=== PATIENT | male | born 1940 | race Caucasian/White ===

== ENCOUNTER 2016-08-02 07:45 | Inpatient (IN) ==
[2016-08-02] MEDS ORDERED: 0.9 % Sodium Chloride 1,000 ML IVC SCH (08:00)
[2016-08-02] MEDS ORDERED: Verapamil 5 MG/2 ML VIAL ONE (10:15)
[2016-08-02] MEDS ORDERED: 0.9 % Sodium Chloride 1,000 ML ONE (10:16)
[2016-08-02] MEDS ORDERED: Nitroglycerin 1,000 MCG/10 ML VIAL IV ONE (10:16)
[2016-08-02] MEDS ORDERED: *HR* Heparin 10,000 UNIT/10 ML VIAL ONE (10:16)
[2016-08-02] MEDS ORDERED: Heparin 1,000 UNITS/500 mL NS 500 ML ONE (10:16)
--- NOTE | 2016-08-02 10:31 | History & Physical Report ---
Date of Encounter: 08/02/16 Time of Encounter: 10:30 24 Hour HP Update - Instructions Instructions: If the History and Physical is less than 30 days old and was completed prior to A.M. admission and or procedure and has NOT been updated on calendar day of procedure please complete this update prior to performing procedure. - Update Patient reports changes in Medical Condition: No Changes in assessment/condition: No Changes in Medication: No Preop tests/diagnostics Reviewed: Yes Surgery Remains Indicated: Yes Consent for Planned Operative Procedure(s) Verified: Yes
--- NOTE | 2016-08-02 10:32 | Pre-Sedation Evaluation ---
Pre-sedation evaluation - Pre-sedation checklist Date of procedure: 08/02/16 Procedure: [facility] Recent Vitals: Last Vital Signs Temp 97.8 F 08/02/16 08:21 Pulse 61 08/02/16 08:21 Resp 16 08/02/16 08:21 BP 138/87 08/02/16 08:21 Pulse Ox 98 08/02/16 08:21 H&P (including ROS) documented in medical record: Yes Previous reaction to sedatives/anesthetics: No Dietary Status: NPO after Midnight Dentition: No loose teeth or bridges ASA Classification *see protocol: CLASS II-Mild systemic disease Plan of Care: Pt appropriate candidate for procedure/moderate/conscious sedation , Risks/benefits of procedure/sedation discussed w/ patient/family
[2016-08-02] MEDS ORDERED: *HR* FentaNYL (PF) 100 MCG/2 ML VIAL ONE (10:33)
[2016-08-02] MEDS ORDERED: *HR* Midazolam HCl 2 MG/2 ML VIAL ONE (10:33)
[2016-08-02] MEDS ORDERED: Aspirin 81 MG TAB.CHEW ONE (10:39)
--- NOTE | 2016-08-02 11:19 | Invasive Diagnostic Lab Proc ---
Name: Todd Villanueva Hugh Date of Study: 08/02/2016 Date: 1940 Ht: 67.0in Medical Record#: [id number] Age: 75 Wt: 175.00lb Gender: Male BSA: 1.91 Order #: [id number] BMI: 27.41 Physicians Procedure Physician: Evert Quigley MD, [facility] Referring MD: Referring MD: Staff Name Position Time In [facility], [place] RT (R) Pre-Op Nurse Vivian Bowers RN Pre-Op Nurse Sophia Portillo RT (R) Monitor 10:44 AM Henrietta Alfred RN Hat Model 10:44 AM [place] Melchor RT (R) Scrub 10:44 AM Indications Indication Unstable Angina Procedures Performed Procedure L HRT ARTERY/VENTRICLE ANGIO Pre-Procedure Checklist Informed consent is complete signed and on chart. H\\T\\P is on chart. ID band is on and ID verified with patient. Patient NPO for procedure The procedure was described for the patient and questions were answered. Blood Pressure: 138/87 ECG is on chart. Rhythm: NSR Plan of Care Patient will tolerate the procedure without complications. Adequate level of comfort will be maintained. Hemodynamics will remain stable Patient will recover from procedure without complications. Respiratory function will be maintained. Cardiac rhythm will remain stable. Patient temperature will be maintained. Patient and/or family have verbalized understanding of the procedure. Patient Education Chief Complaint/Reason for Test: Cardiac Cath Developmental Category: Geriatric (65+ years) Developmentally Appropriate for Age: Yes Learning Barriers: None Education Needs: Procedure Education Method: Verbal Information Taught: Cardiac Cath Educational Evaluation: Able to repeat information Intravenous Access Time IV Size Location DC'd Fluid/Drip Rate Units RN 08:40 AM Started with 20g 1 1/4" Lt Antecubital 0.9NaCl 50 ml/hr [facility], [place] RT (R) Allergies No Known Allergies Vital Signs Time BP (mmHg) HR (bpm) O2 Sat. RR (bpm) LOC 08:42 AM 138 / 87 61 98 % 16 5 = Fully awake and oriented or at pre-proc level 10:44 AM 163 / 82 52 100 % 16 10:50 AM 172 / 79 55 99 % 11 10:54 AM 146 / 60 113 100 % 4 10:59 AM 134 / 59 68 97 % 12 11:04 AM 144 / 61 % Procedural Medications Time Medication Dose Units Method Given By 10:45 AM Oxygen 2 L/min nasal cannula Henrietta Alfred RN 10:45 AM Versed 2 mg Intravenous Henrietta Alfred RN 10:46 AM Fentanyl 50 mcg Intravenous Henrietta Alfred RN 10:46 AM Aspirin (325mg) 325 mg Orally Henrietta Alfred RN 10:54 AM Lidocaine 2% 0.5 ml Subcutaneous Evert Quigley MD, FACC 10:54 AM Heparin 4000 units Nitroglycerin 200 mcg Verapamil 2.5 mg Intraarterial Evert Quigley MD, [facility] ASA Classification: CLASS II- Mild systemic disease (i.e. well-controlled diabetes, hypertension, asthma, cigarette smoking) Nano Score Preprocedure Postprocedure Activity 2- Moves 4 extremities sustained head lift Activity 2- Moves 4 extremities sustained head lift Circulation 2- SBP +/= 20 points of pre-anesthetic level Circulation 2- SBP +/= 20 points of pre-anesthetic level Consciousness 2- Awake and alert oriented x 3 Consciousness 2- Awake and alert oriented x 3 O2 Saturation 2- Able to maintain O2 satruation of 92% on room air O2 Saturation 2- Able to maintain O2 satruation of 92% on room air Respiratory 2- Able to deep breathe and cough well Respiratory 2- Able to deep breathe and cough well Total Score 10 Total Score 10 Contrast Agent: Isovue Diagnostic Contrast: 51 ml Total Contrast: 51 ml Fluoro Dose: 148 mGy Procedure Log Time Note Enter By 08:44 AM Risk for fall? Yes, Medications (change in amt./frequency,newly prescribed,potential combinations) [email or web address] 08:44 AM Evidence of mental, physical, or emotional abuse? No [facility] 08:44 AM Does patient have suicidal ideations? No [facility] 09:42 AM Time: 10:42 Aspirin (325mg) 325 mg Orally Given by Henrietta Alfred RN 09:45 AM Sign in performed according to hospital policy. 10:40 AM Pt arrived to optical laboratory technician 2 at 10:44 10:40 AM Sophia Portillo RT (R) Position: Monitor Time in: 10:40 ones 10:40 AM Henrietta Alfred RN Position: Hat Model Time in: 10:40 10:40 AM [place] Melchor RT (R) Position: Scrub Time in: 10:40 10:41 AM Procedure start 10:41 10:41 AM Case Delayed Miscellaneous patient in bathroom for a long period of time. 10:41 AM Hair removed from procedure site in holding area using clippers. Right wrist prepped with Chloraprep by Sophia Portillo (R), safety strap applied then patient was draped. Skin intact. 10:41 AM Hair removed from procedure site in holding area using clippers. Right groin prepped with Chloraprep by Armando safety strap applied then patient was draped. Skin intact. 10:41 AM Physician arrived 10:41 10:41 AM Patient charges- Angio tray pack, Navilyst 3mm J, Pulse Oximetry and ACIST tubing and transducer 10:41 AM IV Supplies used: J loop Angio Cath. 10:41 AM ASA Class CLASS II- Mild systemic disease (i.e. well-controlled diabetes, hypertension, asthma, cigarette smoking) 10:41 AM Meet and greet completed 10:42 AM Time: 10:42 Versed 2 mg Intravenous Given by Henrietta Alfred RN [email or web address] 10:42 AM Time: 10:42 Fentanyl 50 mcg Intravenous Given by Henrietta Alfred RN [email or web address] 10:42 AM Time: 10:42 Aspirin (325mg) 324 mg Orally Given by Henrietta Alfred RN [email or web address] 10:42 AM Time: 10:42 Oxygen on at 2 L/min per nasal cannula by Henrietta Alfred RN [email or web address] 10:43 AM Recorded ECG: HR=54 Condition=Condition 1 10:44 AM CathStat 10:44 AM Vitals capture started with the following parameters, Patient=Adult, Interval=5 min, Initial Axufgmbp=214 mmHg, Deflation Rate=5 mmHg, Cuff placed on Left Arm 10:44 AM HR=52 bpm, FLNQ=375/82 mmhg, MeJ8=277.0 %, Resp=16 B/min 10:50 AM HR=55 bpm, RPMC=011/79 mmhg, SpO2=99.0 %, Resp=11 B/min, Comment=SB 10:54 AM Time out performed according to hospital policy [email or web address] 10:54 AM Time: 10:54 0.5 ml Lidocaine 2% to right radial Subcutaneous Given by Evert Quigley MD, [email or web address] 10:54 AM Access obtained by percutaneous puncture. 6Fr 10cm Terumo Glidesheath sheath placed in right Radial artery. [id number] [email or web address] 10:54 AM Time: 10:54 Patient given 4,000 units Heparin, 200 mcg Nitroglycerin, and 2.5 mg Verapamil Intraarterial by Evert Quigley MD, [email or web address] 10:54 AM ZV=692 bpm, LHWB=491/60 mmhg, XlA7=712.0 %, Resp=4 B/min, Comment=SB 10:54 AM 0.035 260cm Navilyst 3mmJ wire [id number] [email or web address] 10:55 AM 5Fr TIG catheter inserted over the wire [email or web address] 10:55 AM Pressure channel 1 zero failed. 10:55 AM Pressure channel 1 zero failed. 10:55 AM Pressure channel 1 zero failed. 10:55 AM Pressure channel 1 zero failed. 10:55 AM Pressure channel 1 zero failed. 10:55 AM Pressure channel 1 zeroed. 10:56 AM Recorded Pressure: LV, HR=66, Condition=Condition 1 (Left Ventricle) LV 96/3/11 10:56 AM Catheter selectively placed in left ventricle [email or web address] 10:56 AM Bolus angiogram of left Ventricle complete: 10 ml/sec for a total of 30 mls [email or web address] 10:56 AM Recorded Pressure: LV, Ao, HR=70, Condition=Condition 1 (Left Ventricle) LV 134/5/42, (Aorta) Ao ?/?/? 10:56 AM LCA angiography performed in multiple views. [email or web address] 10:56 AM Recorded Pressure: Ao, HR=69, Condition=Condition 1 (Aorta) Ao 107/72/88 10:58 AM RCA angiography performed in multiple views. [email or web address] 10:58 AM Recorded Pressure: Ao, HR=70, Condition=Condition 1 (Aorta) Ao 110/73/90 10:58 AM Lesion found in Proximal RCA. Pre Stenosis: 70 Pre LOIDA Flow: 2: Partial Flow/Perfusion (> 1 but < 3) [email or web address] 10:58 AM Lesion found in Mid RCA. Pre Stenosis: 95 Pre LOIDA Flow: 2: Partial Flow/Perfusion (> 1 but < 3) [email or web address] 10:58 AM Lesion found in Distal RCA. Pre Stenosis: 60 Pre LOIDA Flow: 2: Partial Flow/Perfusion (> 1 but < 3) [email or web address] 10:59 AM Catheter removed [email or web address] 10:59 AM HR=68 bpm, IYJW=767/59 mmhg, SpO2=97.0 %, Resp=12 B/min, Comment=SB 11:03 AM Procedure completed at 11:03 [email or web address] 11:03 AM Sign out completed: Radiation Dose 148.23 mGy Fluoro Time: 1.2 Isovue 370 - 200ml contrast 51 ml given by Evert Quigley MD, [facility]. Complications: NoneCardiac Rehab Consult needed: YesConfirmed administered medications: Yes [email or web address] 11:03 AM Isovue 370 - 200ml,1 Bottle(s) used. [email or web address] 11:03 AM Arterial sheath pulled, Vasc Band closure device used and was Successful S/N. [email or web address] 11:03 AM 12 ml air in Vasc Band. [email or web address] 11:03 AM Post ECG Sinus Bradycardia [email or web address] 11:04 AM Post Blood Pressure 134/59 [email or web address] 11:04 AM Information taught Cardiac Cath and Vasc Band [email or web address] 11:04 AM Education needs Plan of Care, Procedure, and Disease Process [email or web address] 11:04 AM Learning barriers :None [email or web address] 11:04 AM Education Methods Verbal [email or web address] 11:04 AM Education evaluation Able to repeat information [email or web address] 11:04 AM TGPL=915/61 mmhg, Comment=SB 11:05 AM Site status No bleeding/hematoma - Rt Wrist as reported by [place] Melchor RT (R) at 11:05 [email or web address] 11:05 AM Delay to floor No [email or web address] 11:05 AM Family placed in consult room. [email or web address] 11:05 AM Complications: None [email or web address] 11:11 AM Report given to Allison SNYDER Pt taken to 2NE Room #25. 11:11 [email or web address] 11:11 AM Patient out of room: 11:11 [email or web address] 11:11 AM Complications: None [email or web address] 11:12 AM Fluoro Time: 1.2 [email or web address] 11:12 AM Isovue 370 - 200ml contrast 51 ml given by Evert Quigley MD, [facility]. [email or web address] 11:12 AM Radiation Dose 148.23 mGy [email or web address] Complications Complication None None None Hemodynamics Pressures Site Systolic/A Wave Diastolic/V Wave Mean LV 96 3 11 LV 134 5 42 AO AO 107 72 88 AO 110 73 90 Post Procedure Information Blood Pressure: 134/59 mmHg Rhythm: Sinus Bradycardia Post procedural instructions were given Surgery consult for CABG Site Checks Time Location Status Staff Sheath In? Note 11:05 AM Rt Wrist No bleeding/hematoma [place] Melchor RT (R) Pulses Time Site Pre-Procedure Post-Procedure Note 08/02/2016 8:41:00 AM Rt Radial Normal plethysmography's Test 2+ 08/02/2016 8:41:00 AM Bilateral DP \\T\\ PT 2+ 2+ 08/02/2016 8:41:00 AM Bilateral radial 2+ 2+ Updated by Sophia Portillo, RT(R) on 08/02/2016 11:13:18 AM electronically signed on 08/02/2016 11:13:43 AM with status of Final
--- NOTE | 2016-08-02 12:24 | Cardiothoracic Consult Note ---
Date of Encounter: 08/02/16 Time of Encounter: 12:21 Assessment and Plan (1) Coronary artery disease Current Visit: Yes Status: Acute The assessment and plan as outlined above was discussed with the patient and/or family members who expressed understanding and agreement. All questions were answered. The patient is a candidate for coronary artery bypass grafting. Risks include , infection, stroke, bleeding, cardiac tamponade, myocardial infarction, renal or respiratory failure, acute or chronic graft closure, phrenic nerve injury and sternal dehiscence. The procedure, its risks benefits and alternatives were explained and he does wish to proceed. He was admitted to the hospital because of 95% LAD and circumflex lesions and we will schedule him for tomorrow. At this point he has no further questions. Qualifiers: Coronary Disease-Associated Artery/Lesion type: blackfeet artery [place] vs. transplanted heart: blackfeet heart Associated angina: with stable angina Qualified Code(s): I25.118 - Atherosclerotic heart disease of blackfeet coronary artery with other forms of angina pectoris - History of Present Illness History of present illness: Mr. Villanueva is a 75 year old male History of present illness. Patient is a 75-year-old gentleman who has been having angina with exertion. No history of myocardial infarction. Cardiac catheterization revealed a 95% LAD lesion and a 95% right coronary artery lesion. These are both graftable vessels. The first obtuse marginal branch of the circumflex was okay. He distal circumflex was diseased, but may be too small for grafting. Past medical history is notable for hyperlipidemia and anxiety. Family history is positive for coronary artery disease. Social history. The patient lives by himself in [place]. 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 Does not smoke and does not drink. Review of systems is negative for stroke or TIA. Negative for saphenous vein varicosities or strippings. Past Med Surg Social Fam HX - Past Medical History Medical history: hyperlipidemia Psychiatric history: anxiety - Social History Smoking Status: Never smoker Smokeless Tobacco Status: No Alcohol use: none Drug use: none - Family History Father Adopted: No Living Status: Age at : 62 Cause of : cirrohsis Medications and Allergies Amitriptyline [Elavil] 50 mg PO DAILY 08/02/16 [History] ClonazePAM [Klonopin] 0.5 mg PO BID 08/02/16 [History] Flunisolide 50 mcg NS BID 08/02/16 [History] One-A-Day Men's 50 Plus Tablet 1 mg PO DAILY 08/02/16 [History] Oxybutynin [Ditropan] 5 mg PO BID 08/02/16 [History] Oxymetazoline HCl [Nasal [place]] 1 spray NS BID 08/02/16 [History] Primidone [Mysoline] 25 mg PO HS 08/02/16 [History] Simvastatin [Zocor] 10 mg PO HS 08/02/16 [History] Terazosin HCl 2 mg PO HS 08/02/16 [History] Allergies No Known Allergies Allergy (Verified 08/02/16 08:21) All Systems Review: A 10-system review of systems was performed and is negative for pertinent findings except as documented above in the HPI. Physical Examination Vital Signs, Last 4 Hours Temp Pulse Resp BP Pulse Ox 08/02/16 11:31 97.9 F 58 15 121/77 97 His pupils are equal, round and reactive to light and accommodation. No oral lesions. Neck is supple. Trachea in the midline. No thyromegaly or carotid bruits. Lungs are clear to percussion and auscultation. Heart is in a normal sinus rhythm. He does have a 2/6 systolic murmur along the left sternal border. Abdomen is benign. He is status post open cholecystectomy. No tenderness, rebound or guarding. No hepatosplenomegaly or masses. Extremities without edema. 2+ pulses. No saphenous vein varicosities or strippings. Cranial nerves, motor and sensory intact. He is awake, alert and oriented 3. Consult Discharge Plan - Plan Referrals: NO,PCP [Primary Care Provider] -
[2016-08-02] MEDS ORDERED: ceFAZolin 2,000 MG in D5% in Water 100 ML IVPB ONE (12:31)
--- NOTE | 2016-08-02 13:01 | Invasive Diagnostic Lab ---
Name: Todd Villanueva Date of Study: 08/02/2016 Date: 1940 Ht: 170.2 cm /67.0 in Medical Record#: [id number] Age: 75 Wt: 79.4 kg / 175.00 lb Account/Order#: [id number] Gender: Male BSA: 1.91 Order #: [id number] Fluoro Dose: 148 mGy BMI: 27.41 Procedure Physician: Evert Quigley MD, FACC Referring MD: Referring MD: Procedures Performed: LEFT HEART CATH Indications: Unstable Angina, Abnormal stress test Impressions: There is severe multivessel coronary artery disease. The left ventricle is normal and has normal contractility EF 60% Recommendations: Optimal medical therapy of patient's disease. Aggressive risk factor modification. Suggest patient have Urgent coronary artery bypass surgery. History/Risk Factors: anxiety heart problems nasal problems Dyslipidemia Family History of CAD Procedure Access obtained in the right Radial artery by percutaneous puncture Complications: None, None, None Contrast: Isovue 51ml Hemodynamics: Pressures Site Systolic/ A Wave Diastolic/ V Wave End Diastolic/ Mean HR LV 96 3 11 66 LV 134 5 42 70 AO 0 AO 107 72 88 69 AO 110 73 90 70 LV Ventriculography Ejection Method: LV Gram Ejection Fraction: 60% Wall Motion: RUSSELL Anterobasal Normal Anterolateral Normal Apical: Normal Inferoapical Normal Inferobasal Normal Coronary Dominance: Right Lesion Findings/Interventions * Left Main Coronary Artery The LMCA is angiographically free of disease. * Left Anterior Descending There is a 95% stenosis in the Proximal LAD. There is a long 70-95% stenosis in the Mid LAD. * Circumflex There is a mid 50% stenosis in the Mid Circumflex. * Right Coronary Artery There is a 70% stenosis in the Proximal RCA. There is a 95% stenosis in the Mid RCA. Instent restenosis There is a 60% stenosis in the Distal RCA. Updated by RT Maggie(R) on 08/02/2016 11:12:32 AM Evert Quigley MD, FACC electronically signed on 08/02/2016 12:58:09 PM with status of Final
[2016-08-02 13:02] LABS: Basophils # 0.1 K/mcL (0.0-0.2); Basophils % 0.8 %; Eosinophils # 0.3 K/mcL (0.0-0.6); Eosinophils % 3.4 %; Hematocrit 43.4 % (37.5-50.1); Hemoglobin 13.7 g/dL (12.9-16.9); Immature Granulocytes % 0.3 % (0-4); Lymphocytes # 1.9 K/mcL (0.6-4.6); Lymphocytes % 25.1 %; Mean Corpuscular HGB Conc 31.6 g/dL (31.6-35.5); Mean Corpuscular Hemoglobin 25.8 pg (28.0-33.3); Mean Corpuscular Volume 81.7 fL (83.0-100.0); Mean Platelet Volume 10.2 fL (9.4-12.4); Monocytes # 0.7 K/mcL (0.0-1.3); Monocytes % 9.6 %; Neutrophils # 4.5 K/mcL (1.6-8.9); Platelet Count 160 K/mcL (140-400); Red Blood Count 5.31 M/mcL (4.19-5.50); Red Cell Distribution Width 15.1 % (11.5-14.5); Segmented Neutrophils % 60.8 %
[2016-08-02 13:08] LABS: INR 1.1; Prothrombin Time 11.7 Seconds (9.4-12.1)
[2016-08-02 13:11] LABS: Activated Partial Thrombo Time 49.4 Seconds (26.0-36.0)
[2016-08-02 13:24] LABS: BUN/Creatinine Ratio 8 (6-26); Blood Urea Nitrogen 9 mg/dL (8-26); Calcium 8.1 mg/dL (8.6-10.8); Carbon Dioxide 25 mEq/L (19-29); Chloride 106 mEq/L (98-109); Cholesterol 110 mg/dL (< 200); Glucose 93 mg/dL (70-99); HDL Cholesterol 37 mg/dL (40-59); LDL Cholesterol,Calculated 59 mg/dL (0-99); Osmolality,Calculated 284 (280-300); Potassium 4.2 mEq/L (3.5-4.5); Sodium 138 mEq/L (136-145); Triglycerides 69 mg/dL (< 150); eGFR For African Americans > 60 (> 60); eGFR For Non-African Americans > 60 (> 60)
[2016-08-02 13:31] LABS: Hemoglobin A1C 5.4 %
--- NOTE | 2016-08-02 13:41 | Anesthesia Evaluation PreOp ---
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 Any Significant HX Other Medical History: Other (anxiety) Anesthesia History: No Prior Anesthetic Complications Alcohol Use: none Drug use: none Medications and Allergies Amitriptyline [Elavil] 50 mg PO HS 08/02/16 [History] Aspirin [Lo-Dose Aspirin EC] 81 mg PO DAILY 08/02/16 [History] Atenolol [Tenormin] 37.5 mg PO DAILY 08/02/16 [History] ClonazePAM [Klonopin] 0.5 mg PO BID 08/02/16 [History] Fluticasone Propionate Nasal [Flonase] 50 mcg NS BID 08/02/16 [History] Nitroglycerin [Nitrostat] 0.4 mg SL AD PRN 08/02/16 [History] Joy-3/Dha/Epa/Fish Oil [Fish Oil 1,000 mg Softgel] 1,000 mg PO DAILY 08/02/16 [History] Oxybutynin [Ditropan] 5 mg PO BID 08/02/16 [History] Primidone [Mysoline] 25 mg PO BID 08/02/16 [History] Saw [place] Xtr/Zinc Picolin [Saw [place] Capsule] 1 cap PO DAILY 08/02/16 [ History] Simvastatin [Zocor] 10 mg PO HS 08/02/16 [History] Terazosin [Hytrin] 3 mg PO HS 08/02/16 [History] Allergies No Known Allergies Allergy (Verified 08/02/16 08:21) - Meds/Allergy Pre-op Review Medications Reviewed: Yes Allergies Reviewed: Yes Beta Blockers on Current Med List: Yes Anesthesia Results - Labs 08/02/16 12:44 08/02/16 12:44 - Imaging Additional studies: cath shows LAD disease with EF 60% Anesthesia Exam Selected Entries 08/03/16 01:00 Temperature 97.7 F Pulse Rate 68 Respiratory Rate 16 Blood Pressure 137/75 O2 Sat by Pulse Oximetry 97 Height: 1.7m Weight: 82kg NPO (# of Hours): 8 Pain Scale: 0 Pain Scale Used: Numeric (1 - 10) - HEENT Pupil (Motor): EOMI Mallampati: II Teeth: Normal Oral Opening: Greater than 3 - [employer] SUPERVISOR LOC: Oriented [employer]PER[employer] SUPERVISOR Motor: Normal RUE, Normal LUE, Normal RLE, Normal LLE, Normal Face [employer] SUPERVISOR Sensory: Normal: RUE, LUE, RLE, LLE, Face - Cardiac Rhythm: Regular Murmur: Systolic (2/6 BOB) - Pulmonary Breath Sounds: bilateral Clear Respiratory Effort: Symmetrical Anesthesia Assess/Plan ASA Score: 3 Modified Beto Scale for Level of Consciousness: Cooperative, oriented, and tranquil Anesthetic Plan: General Monitoring Plan: Standard Monitors, A-Line, PAC Recovery Plan: ICU (Discussed risks of GA, lines, potential need for MARGARET and blood products. Questions answered and agrees to proceed.)
[2016-08-02] MEDS: 0.9 % Sodium Chloride 1,000 ML IVC SCH (16:47)
--- NOTE | 2016-08-02 17:24 | ECHO - Doppler Report ---
Echocardiogram Name: Todd Villanueva Date of Study: 08/02/2016 Date: 1940 Ht: 67.0 in Medical Record#: [id number] Age: 75 Wt: 175.0 lb Gender: Male BSA: 1.91 Order #: [id number] Location: [facility] Room #: [id number] Reading Physician: Cathi Collins DO Knitting Supervisor: Myranda Fung RDCS Ordering Physician: Gerald Perez MD Primary Physician: None Indications: Murmur, PreOperative CABG Impressions: LVEF 55%. Normal left ventricular size and systolic function. There is evidence of mild diastolic dysfunction of the left ventricle. Dilated RV with normal function. Eccentric aortic regurgitation that is poorly visualized. Calcification of the aortic valve leaflets with moderate reduction in leaflet excursion. Suboptimal Doppler evaluation. Recommend repeat Limited study with focus on the aortic valve. Mild mitral regurgitation. No pulmonary hypertension. Left Ventricular Wall Motion: Rest Echo Findings All wall segments showed normal motion. Findings: ECG Findings * Normal sinus rhythm. Aortic Valve * Leaflet morphology is not well visualized. * Eccentric AR that is poorly visualized. * Calcification of the aortic valve leaflets with moderate reduction in leaflet excursion. Suboptimal Doppler evaluation. Mitral Valve * Normal mitral valve structure. * No mitral stenosis. * Mild mitral regurgitation. Tricuspid Valve * Tricuspid valve not well visualized. * No tricuspid regurgitation. Pulmonic Valve * Pulmonic valve is not well visualized. * No pulmonic stenosis. * No pulmonic regurgitation. Pulmonary Artery * Pulmonary artery not well visualized. Left Ventricle * LVEF 55%. * Normal LV chamber size, wall thickness and function. * Mild left ventricular diastolic dysfunction. Right Ventricle * Dilated RV with normal function. Left Atrium * Normal left atrial size. Right Atrium * Normal right atrial size. Interatrial Septum * Interatrial septum not well evaluated. IVC * The IVC is not well evaluated. Pericardium * There is no pericardial effusion present. Aorta * Normally sized aortic root. * Poorly visualized ascending aorta. Study Quality * Technically fair. History Hypercholesteremia Family History of CAD Measurements: BP: 121/ 77 2D Normal Values IVSd: .82 cm 0.6 - 1.0 cm LVIDd: 4.88 cm 3.7 - 5.6 cm LVPWd: .82 cm 0.6 - 1.1 cm LVIDs: 3.91 cm 1.5 - 3.6 cm AO: 3.10 cm < 4.0 cm LA: 3.40 cm 2.0 - 4.0cm %FS: 19.90 cm >25 % LVOT Diam: 2.00 cm LA volume: 34 Mitral Valve Peak E:1.04 m/sec Peak A:1.24 m/sec E/A Ratio:0.8 Peak E' Lat Prakash:8.59 cm/s Peak E' Med Prakash:9.25 cm/s E/E' Lat Ratio:12.1 E/E' Med Ratio:11.2 Aortic Valve AI pressure Half-time: 898.00 msec Tricuspid Valve TV Regurg Peak Grad: 12.00mmHg TV Regurg Peak Prakash: 1.75m/sec Updated by Cathi Collins on 08/02/2016 5:16:08 PM electronically signed on 08/02/2016 5:19:20 PM with status of Final Wall Motion Payne: 1=Normal, 2=Hypokinesis, 3=Akinesis, 4=Dyskinesis, 5=Aneurysmal, 6=Hyperkinetic, X=Not Visualized (Blank)=Missing
[2016-08-02 17:41] LABS: Bilirubin,Urine Negative (Negative); Clarity,Urine Clear (Clear); Color,Urine Yellow (Yellow); Glucose,Urine (UA) Normal (Normal); Ketones,Urine Negative (Negative)
[2016-08-02 17:42] LABS: Blood,Urine Negative (Negative); Leukocyte Esterase,Urine Negative (Negative); Nitrite,Urine Negative (Negative); PH,Urine 6.5 pH Units (5.0-8.0); Protein,Urine Negative (Neg-Trace); Specific Gravity,Urine 1.023 (1.010-1.025); Urobilinogen,Urine Normal (Normal)
[2016-08-02] MEDS: Fluticasone Propionate Nasal 50 MCG/SPRAY BOTTLE NS SCH (20:11)
[2016-08-02] MEDS ORDERED: Chlorhexidine Rinse 15 ML MOUTHWASH MM SCH (21:00)
[2016-08-02] MEDS ORDERED: Primidone 50 MG TABLET PO SCH (21:00)
[2016-08-02] MEDS: clonazePAM 0.5 MG TABLET PO SCH (22:02)
[2016-08-02] MEDS: Chlorhexidine Rinse 15 ML MOUTHWASH MM SCH (22:04)
[2016-08-02] MEDS: Oxymetazoline Nasal SPRAY BOTTLE NS SCH (22:05)
[2016-08-03] MEDS ORDERED: ceFAZolin 2,000 MG in D5% in Water (Mini-Bag+) 100 ML IVPB ONE (06:01)
[2016-08-03] MEDS: Chlorhexidine Rinse 15 ML MOUTHWASH MM SCH ×2 (06:32→20:11)
[2016-08-03] MEDS ORDERED: Nitroglycerin 25 MG/250 ML INFUS..BTL IVC ONE ×2 (06:32→08:44)
[2016-08-03] MEDS ORDERED: NiCARdipine 2.5 MG/10 ML Syringe IVPB ONE (06:33)
[2016-08-03] MEDS ORDERED: *HR* Norepinephrine 4 MG/4 ML VIAL IVC ONE (06:35)
[2016-08-03] MEDS ORDERED: *HR* Phenylephrine 10 MG/ML VIAL ONE (06:35)
[2016-08-03] MEDS ORDERED: *HR* Rocuronium Bromide 50 MG/5 ML VIAL ONE ×2 (06:35→10:38)
[2016-08-03] MEDS ORDERED: Famotidine 20 MG/2 ML VIAL ONE (06:35)
[2016-08-03] MEDS ORDERED: *HR* Etomidate 20 MG/10 ML AMPUL IVP ONE (06:35)
[2016-08-03] MEDS ORDERED: Tranexamic Acid 1,000 MG/10 ML VIAL ONE ×2 (06:36→08:44)
[2016-08-03] MEDS ORDERED: Protamine Sulfate 250 MG/25 ML VIAL IVP ONE (06:36)
[2016-08-03] MEDS ORDERED: *HR* Midazolam HCl 5 MG/5 ML VIAL IVP ONE (06:54)
[2016-08-03] MEDS ORDERED: *HR* FentaNYL (PF) 1,000 MCG/20 ML VIAL ONE (06:55)
[2016-08-03] MEDS ORDERED: Verapamil 5 MG/2 ML VIAL ONE (07:36)
[2016-08-03] MEDS ORDERED: *HR* Magnesium Sulfate 2 GM/50 ML PIGGYBACK IVPB ONE (08:08)
[2016-08-03] MEDS ORDERED: Mannitol 25% vial 12.5 GM/50 ML VIAL IVP ONE (08:08)
[2016-08-03] MEDS ORDERED: Sodium Bicarbonate 50 MEQ/50 ML VIAL IVC ONE (08:08)
[2016-08-03] MEDS ORDERED: *HR* Phenylephrine 10 MG/ML VIAL IVC ONE (08:08)
[2016-08-03] MEDS ORDERED: *HR* Heparin 10,000 UNIT/10 ML VIAL IV ONE (08:08)
[2016-08-03] MEDS ORDERED: Lidocaine 2% Syringe 100 MG/5 ML IV ONE (08:08)
[2016-08-03] MEDS ORDERED: Albumin Human 25% 25 GM/100 ML IV.SOLN IV ONE (08:08)
[2016-08-03] MEDS ORDERED: 0.9 % Sodium Chloride 500 ML ONE (08:44)
[2016-08-03] MEDS ORDERED: niCARdipine 40 MG/200 ML MLS IVC ONE (08:44)
[2016-08-03] MEDS ORDERED: Albumin Human 5% 50.0 GM/1,000 ML VIAL ONE (08:44)
--- NOTE | 2016-08-03 08:59 | Anesthesia Procedures ---
Date of Encounter: 08/03/16 Time of Encounter: 07:50 Procedures: Anesthesia - Arterial Line Consent obtained: written consent Time out performed: Yes Sedation: Versed (mg): 2 Sedation: Fentanyl (mcg): 100 Supplemental Oxygen via Nasal Cannula (L/min): 2 Local Anesthetic: Lidocaine 1% Amount of Anesthetic used (mls): 1 Size (Gauge): 20 Length (inches): 5 Technique Used: sterile prep, guide wire technique, direct puncture technique Post-Procedure: line taped into place, dry sterile dressing placed Patient tolerated procedure: well, no complications Complications: none Site: Radial L (attempt x 1. Placed easily) - Central Line Placement Right IJ Consent obtained: written consent Time out performed: Yes Patient placed on monitor/pulse ox: Yes prep: mask, gown, gloves Central line prep: Chlorhexidine scrub Ultrasound used for placement: Yes Technique: Seldinger Lumen Inserted: Introducer Post procedure: sutured in place, good blood return, all ports aspirated, flushed, capped, sterile dressing applied Patient tolerated procedure: well, no complications Complications: none Comments: attempt x 1, swan placed easily, no arrythmias. Unable to wedge
[2016-08-03] MEDS ORDERED: Multivit/Ca/Min/Fe/FA 1 TAB TABLET PO SCH (09:00)
[2016-08-03] MEDS ORDERED: Protamine Sulfate 50 MG/5 ML VIAL IVP ONE (10:35)
[2016-08-03] MEDS ORDERED: *HR* Dextrose 50 % in Water (Syg) 50 ML SYRINGE ONE (10:35)
[2016-08-03] MEDS: Norepinephrine 4 MG in D5% in Water 250 ML IVC SCH (11:20)
[2016-08-03] MEDS ORDERED: Insulin Regular, Human 100 UNIT/ML IV PRN (11:56)
[2016-08-03] MEDS ORDERED: 0.9 % Sodium Chloride 1,000 ML IVC SCH (11:56)
[2016-08-03] MEDS ORDERED: Ondansetron 4 MG/2 ML VIAL IVP PRN (11:56)
[2016-08-03] MEDS ORDERED: Potassium Chloride 40 MEQ/200 ML BAG IVPB PRN (11:56)
[2016-08-03] MEDS ORDERED: *HR* Dextrose 50 % in Water (Syg) 50 ML SYRINGE IVP PRN (11:56)
[2016-08-03] MEDS ORDERED: *HR* Promethazine 25 MG/ML VIAL IVP PRN (11:56)
--- NOTE | 2016-08-03 11:57 | Operative Note ---
Date of procedure: 08/03/16 Procedure in Detail: Preoperative diagnosis. Coronary artery disease. Postoperative diagnosis. Same. Procedures. Coronary artery bypass grafting 2 with the left internal mammary artery to the LAD and the aorta to the posterolateral branch of the right coronary artery with saphenous vein. Surgeon. Dr. Gerald Perez. Steamer Blocker. Clemente Ross. Anesthesia. Dr. Giovanny Scruggs. The patient is a 75-year-old gentleman who presented with angina. Echocardiogram did reveal good ventricular function. There was a question about aortic valve regurgitation. The aortic valve was not stenotic. Cardiac catheterization revealed severe coronary artery disease and the patient was referred for surgery. He was brought to the operating room where he underwent a general anesthetic and was prepped and draped in standard fashion. A piece of the right greater saphenous vein was harvested from the right ankle to the right knee through 2 small incisions using the scope. These incisions were subsequently closed with a 2-0 subcutaneous stitch and a 3-0 Vicryl subcuticular stitch. The patient did undergo MARGARET. This revealed that the aortic valve was somewhat thickened. However it had a good orifice. It was not stenotic. There was minimal aortic regurgitation. A standard median sternotomy was performed. The left internal mammary artery retractor was inserted and the ANAYA was harvested in standard fashion using the Bovie electrocoagulation. It was found to be a small vessel, but to have adequate pulse and flow. Following this, mammary retractor was removed and the standard sternal regional vice president life sales was inserted. Pericardium was opened in the midline and suspended with 2-0 silk stay sutures. A double purse string of 200 S[place]ilon was placed in the aorta for the aortic cannulation site. A pursestring of 20 S[place] was placed in the right atrial appendage for the venous uptake. The patient was heparinized. The aorta was cannulated without difficulty. 2 stage venous uptake cannula was inserted through the right atrial appendage. A pursestring of 3-0 silk was placed in the aorta and the cardia plegia needle was inserted through here. This was also used as an active and passive aortic vent. The patient was placed on cardiopulmonary bypass and cooled to 35. This point the aorta was crossclamped and a liter of antegrade cardioplegia was given. There was good aortic root pressure. Topical cooling with iced saline slush was also done. Attention was first turned to the circumflex. The distal circumflex was too small for grafting. The obtuse marginal branch was not significantly diseased. The posterolateral branch off the right coronary artery was dissected free with the Wilton blade and opened with a Wilton blade and the Roman scissors. This had a lumen of 1-1-1/2 mm and had mild diffuse disease. A standard end-to-side anastomosis was constructed using the saphenous vein and a 7-0 Prolene. When this is completed, an additional dose of antegrade cardioplegia was given. Mammary pedicle was harvested. Tonsil clamp was placed distally and was divided with the Metzenbaum scissors. The distal end was tied off with a 2-0 silk suture. The proximal end was trimmed and brought into the wound. The LAD was dissected free with the Wilton blade and opened with the Wilton blade and the Roman scissors. This had a lumen of 1-1/2 mm with moderate diffuse disease. A standard end-to-side anastomosis was constructed using the mammary artery and a 7-0 Prolene. When this is completed, the previously placed bulldog clamp was removed and hemostasis was good. The pedicle was tacked to the surface of the heart using 2 interrupted 5-0 silk sutures. Cross-clamp was removed. Total cross-clamp time was 61 minutes. A side-biting clamp was placed on the aorta and the cardioplegia needle was removed. A hole was made in the aorta using the Wilton blade and the 4.5 mm aortic punch. A standard proximal anastomosis was constructed using the saphenous vein and a 5-0 Prolene. Following this, the side -biting clamp was removed. The graft was de-aired using #25-gauge needle and the previously placed bulldog clamp was removed. The proximal anastomosis was marked with a marker from FONU2. The distal anastomoses were inspected and found to be hemostatic. A pair of ventricular pacing wires was left. A total of 3 chest tubes were left. A 32 right angle chest tube to the left pleural space. A 32 right angle chest tube to the pericardial well. A 42 mediastinal chest tube. The patient was weaned from bypass requiring no pressors for support. He was decannulated and protamine was given. Hemostasis was good and the hemodynamics were good. Pericardium was left open. The sternum was closed using #7 wires in simple and [id number] fashion. Fascia was run with #1 Vicryl. Subcutaneous tissues with a 2-0 Vicryl. Skin was closed with a 3 -0 Vicryl subcuticular stitch. The patient tolerated the procedure well and was returned intensive care unit in satisfactory and stable condition. Total bypass time was 61 minutes. Total cross-clamp time was 35 minutes. He been cooled to 35 .
[2016-08-03] MEDS: Nitroglycerin 25 MG/250 ML INFUS..BTL IVC SCH ×2 (12:00→20:05)
[2016-08-03 12:06] LABS: Hematocrit 29.3 % (37.5-50.1); Hemoglobin 9.6 g/dL (12.9-16.9); Mean Corpuscular HGB Conc 32.8 g/dL (31.6-35.5); Mean Corpuscular Hemoglobin 26.2 pg (28.0-33.3); Mean Corpuscular Volume 80.1 fL (83.0-100.0); Mean Platelet Volume 9.8 fL (9.4-12.4); Monocytes # 0.2 K/mcL (0.0-1.3); Red Blood Count 3.66 M/mcL (4.19-5.50)
[2016-08-03 12:07] LABS: Activated Partial Thrombo Time 36.4 Seconds (26.0-36.0); INR 1.8
[2016-08-03 12:08] LABS: ABG Base Excess 2.8 mEq/L (-2.0 to 3.0); ABG HCO3 27.2 mEQ/L (21-27); ABG Oxygen Saturation 99 % (95-98); ABG PCO2 40 mmHg (35-45); ABG PH 7.44 pH Units (7.32-7.45); ABG PO2 116 mmHg (85-104); ABG TCO2 28.4 mEq/L (20-26); Blood Gas FiO2 40 %; Platelet Count 64 K/mcL (140-400)
[2016-08-03 12:10] LABS: Prothrombin Time 19.3 Seconds (9.4-12.1)
[2016-08-03 12:16] LABS: BUN/Creatinine Ratio 11 (6-26); Blood Urea Nitrogen 10 mg/dL (8-26); Calcium 7.4 mg/dL (8.6-10.8); Carbon Dioxide 25 mEq/L (19-29); Chloride 109 mEq/L (98-109); Glucose 91 mg/dL (70-99); Magnesium 2.6 mg/dL (1.6-2.6); Osmolality,Calculated 289 (280-300); Potassium 3.7 mEq/L (3.5-4.5); Sodium 140 mEq/L (136-145); eGFR For African Americans > 60 (> 60); eGFR For Non-African Americans > 60 (> 60)
[2016-08-03 12:19] LABS: Eosinophils # 0.3 K/mcL (0.0-0.6); Lymphocytes # 2.2 K/mcL (0.6-4.6); Neutrophils # 6.8 K/mcL (1.6-8.9); Platelet Estimate Decreased (Normal)
[2016-08-03] MEDS: 0.9 % Sodium Chloride 1,000 ML IVC SCH ×2 (12:49→20:07)
[2016-08-03 12:52] LABS: ABG Base Excess 1.9 mEq/L (-2.0 to 3.0); ABG Glucose 102 mg/dL (60-95); ABG Hematocrit 42 % (35-51); ABG Ionized Calcium 1.07 mmol/L (1.15-1.35); ABG Oxygen Saturation 87 % (95-98); ABG PCO2 55 mmHg (35-45); ABG PH 7.33 pH Units (7.32-7.45); ABG PO2 57 mmHg (85-104); ABG TCO2 30.7 mEq/L (20-26)
[2016-08-03 12:54] LABS: ABG PCO2 32 mmHg (35-45)
[2016-08-03 12:55] LABS: ABG Base Excess -4.4 mEq/L (-2.0 to 3.0); ABG Glucose 89 mg/dL (60-95); ABG HCO3 19.8 mEQ/L (21-27); ABG Hematocrit 29 % (35-51); ABG Oxygen Saturation 99 % (95-98); ABG PO2 139 mmHg (85-104); ABG TCO2 20.8 mEq/L (20-26)
[2016-08-03 12:56] LABS: ABG Ionized Calcium 0.68 mmol/L (1.15-1.35)
[2016-08-03 12:59] LABS: ABG Base Excess 4.6 mEq/L (-2.0 to 3.0); ABG HCO3 28.2 mEQ/L (21-27); ABG Hematocrit 26 % (35-51); ABG Oxygen Saturation 100 % (95-98); ABG PCO2 37 mmHg (35-45); ABG PH 7.49 pH Units (7.32-7.45); ABG PO2 398 mmHg (85-104); ABG TCO2 29.3 mEq/L (20-26)
[2016-08-03 13:00] LABS: ABG Glucose 162 mg/dL (60-95); ABG Ionized Calcium 0.84 mmol/L (1.15-1.35)
[2016-08-03 13:01] LABS: ABG HCO3 29.1 mEQ/L (21-27); ABG PCO2 40 mmHg (35-45); ABG PH 7.47 pH Units (7.32-7.45); ABG PO2 338 mmHg (85-104); ABG TCO2 30.3 mEq/L (20-26)
[2016-08-03 13:02] LABS: ABG Glucose 113 mg/dL (60-95); ABG Hematocrit 26 % (35-51); ABG Ionized Calcium 0.91 mmol/L (1.15-1.35); ABG Oxygen Saturation 100 % (95-98)
[2016-08-03 13:04] LABS: ABG Base Excess 0.9 mEq/L (-2.0 to 3.0); ABG Glucose 77 mg/dL (60-95); ABG HCO3 25.1 mEQ/L (21-27); ABG Hematocrit 24 % (35-51); ABG Ionized Calcium 1.24 mmol/L (1.15-1.35); ABG Oxygen Saturation 98 % (95-98); ABG PCO2 37 mmHg (35-45); ABG PH 7.44 pH Units (7.32-7.45); ABG PO2 104 mmHg (85-104); ABG TCO2 26.2 mEq/L (20-26)
[2016-08-03 14:20] LABS: ABG Base Excess 1.2 mEq/L (-2.0 to 3.0); ABG HCO3 24.7 mEQ/L (21-27); ABG Oxygen Saturation 99 % (95-98); ABG PCO2 34 mmHg (35-45); ABG PH 7.47 pH Units (7.32-7.45); ABG PO2 142 mmHg (85-104); ABG TCO2 25.7 mEq/L (20-26); Blood Gas FiO2 30 %
--- NOTE | 2016-08-03 14:24 | Electrocardiograph Report ---
[address] [place] [address] Test Date: 2016-08-03 Pat Name: Todd Villanueva Department: 109 Room: [facility] Gender: M R D Internship: : 1940 Requested By: Gerald Perez Order Number: [id number] Reading MD: Evert Quigley MD Measurements Intervals [place] Rate: 79 P: 32 MO: 199 QRS: 10 QRSD: 118 T: 41 QT: 413 QTc: 448 Interpretive Statements SINUS RHYTHM INCOMPLETE RIGHT BUNDLE BRANCH BLOCK INFERIOR MYOCARDIAL INFARCTION, PROBABLY OLD Electronically Signed On 08-03-2016 14:21:55 EDT by Evert Quigley MD
[2016-08-03 15:17] LABS: Hematocrit 27.3 % (37.5-50.1)
[2016-08-03 15:21] LABS: Hemoglobin 8.9 g/dL (12.9-16.9)
[2016-08-03] MEDS: *HR* Morphine 2 MG/ML SYRINGE IVP PRN ×2 (15:52→20:34)
[2016-08-03] MEDS: ceFAZolin 2,000 MG in D5% in Water 100 ML IVPB SCH ×2 (17:30→23:04)
[2016-08-03 18:08] LABS: ABG Base Excess 0.5 mEq/L (-2.0 to 3.0); ABG HCO3 23.6 mEQ/L (21-27); ABG Oxygen Saturation 99 % (95-98); ABG PCO2 31 mmHg (35-45); ABG PH 7.49 pH Units (7.32-7.45); ABG PO2 127 mmHg (85-104); ABG TCO2 24.6 mEq/L (20-26)
[2016-08-03] MEDS ORDERED: Insulin Human Regular 100 UNIT in 0.9 % Sodium Chloride 100 ML IVC SCH (19:30)
[2016-08-03] MEDS: niCARdipine 40 MG/200 ML MLS IVC SCH (20:04)
[2016-08-03] MEDS: clonazePAM 0.5 MG TABLET PO SCH (20:07)
[2016-08-03] MEDS: Oxymetazoline Nasal SPRAY BOTTLE NS SCH (20:08)
[2016-08-03] MEDS: Fluticasone Propionate Nasal 50 MCG/SPRAY BOTTLE NS SCH ×2 (20:08→20:11)
[2016-08-03 21:38] LABS: ABG Base Excess 1.8 mEq/L (-2.0 to 3.0); ABG HCO3 26.6 mEQ/L (21-27); ABG Oxygen Saturation 99 % (95-98); ABG PCO2 42 mmHg (35-45); ABG PO2 122 mmHg (85-104); ABG TCO2 27.9 mEq/L (20-26)
[2016-08-03 21:39] LABS: Blood Gas FiO2 32 %
[2016-08-03 21:41] LABS: ABG PH 7.41 pH Units (7.32-7.45)
[2016-08-04] MEDS: 0.9 % Sodium Chloride 1,000 ML IVC SCH ×2 (01:01→20:36)
[2016-08-04] MEDS: niCARdipine 40 MG/200 ML MLS IVC SCH ×3 (01:04→20:34)
[2016-08-04] MEDS: Norepinephrine 4 MG in D5% in Water 250 ML IVC SCH ×3 (01:20→23:35)
[2016-08-04] MEDS: *HR* OxyCODONE/APAP 5/325 TABLET PO PRN ×3 (03:56→16:58)
[2016-08-04 04:13] LABS: Eosinophils % 0.2 %; Hemoglobin 7.4 g/dL (12.9-16.9); Red Cell Distribution Width 15.2 % (11.5-14.5)
[2016-08-04 04:15] LABS: Basophils # 0.1 K/mcL (0.0-0.2); Basophils % 0.4 %; Hematocrit 23.3 % (37.5-50.1); Immature Granulocytes % 0.3 % (0-4); Immature Platelets 5.6 % (1.1-6.1); Lymphocytes # 0.9 K/mcL (0.6-4.6); Lymphocytes % 6.9 %; Mean Corpuscular HGB Conc 31.8 g/dL (31.6-35.5); Mean Corpuscular Hemoglobin 25.6 pg (28.0-33.3); Mean Corpuscular Volume 80.6 fL (83.0-100.0); Mean Platelet Volume 10.7 fL (9.4-12.4); Monocytes # 0.8 K/mcL (0.0-1.3); Monocytes % 6.4 %; Neutrophils # 11.2 K/mcL (1.6-8.9); Platelet Count 103 K/mcL (140-400); Red Blood Count 2.89 M/mcL (4.19-5.50); Segmented Neutrophils % 85.8 %
[2016-08-04 04:27] LABS: BUN/Creatinine Ratio 11 (6-26); Blood Urea Nitrogen 15 mg/dL (8-26); Carbon Dioxide 24 mEq/L (19-29); Chloride 108 mEq/L (98-109); Potassium 4.3 mEq/L (3.5-4.5); Sodium 139 mEq/L (136-145)
[2016-08-04 04:28] LABS: Calcium 6.9 mg/dL (8.6-10.8); Glucose 132 mg/dL (70-99); Magnesium 1.8 mg/dL (1.6-2.6); Osmolality,Calculated 291 (280-300); eGFR For African Americans > 60 (> 60); eGFR For Non-African Americans 53 (> 60)
[2016-08-04 04:40] LABS: INR 1.5
[2016-08-04 04:42] LABS: Activated Partial Thrombo Time 27.5 Seconds (26.0-36.0)
[2016-08-04 04:45] LABS: Prothrombin Time 16.7 Seconds (9.4-12.1)
[2016-08-04 05:08] LABS: Platelet Estimate Decreased (Normal)
--- NOTE | 2016-08-04 06:45 | Anesthesia Evaluation Post Op ---
Date of Encounter: 08/04/16 Time of Encounter: 06:42 - Vital Signs Vital Signs: Selected Entries 08/04/16 05:59 Temperature 99.2 F Pulse Rate 85 Respiratory Rate 14 Blood Pressure 129/48 O2 Sat by Pulse Oximetry 100 Oxygen Flow Rate (LPM) 3 - Lungs Lungs: Clear Ascult./Percussion - Airway Airway: Non-obstructed - Cardiovascular Regular Rate - Mental Status Mental Status: Alert & Oriented, Answers Appropriately - Pain Pain Scale: 2 Pain Scale used: Numeric (1 - 10) - Nausea Vomiting Nausea Vomiting: Not Present - Hydration Hydration: Ice chips, Laurent catheter Notes: 08/04/16 06:43 patient still on low dose Levophed for BP. Less drainage from CT. No apparent anesthesia issues post operatively. Probably will remain in ICU until off pressors but is up to surgery. 08/04/16 06:44
[2016-08-04] MEDS: Aspirin Enteric Coated 81 MG Tablet PO SCH (08:10)
[2016-08-04] MEDS: Chlorhexidine Rinse 15 ML MOUTHWASH MM SCH ×2 (08:11→20:33)
[2016-08-04] MEDS: Nitroglycerin 25 MG/250 ML INFUS..BTL IVC SCH ×2 (08:27→20:40)
[2016-08-04] MEDS: Fluticasone Propionate Nasal 50 MCG/SPRAY BOTTLE NS SCH ×2 (08:27→20:33)
--- NOTE | 2016-08-04 09:33 | Cardiothoracic Progress Note ---
Date of Encounter: 08/04/16 Time of Encounter: 09:31 - Assessment and plan (1) Coronary artery disease Current Visit: Yes Status: Acute We will leave him in the ICU today. We will discontinue his Jachin-Deondre catheter. We will leave his Laurent catheter until tomorrow only take the chest tubes out. He does have the usual, expected acute postoperative blood loss anemia. Qualifiers: Coronary Disease-Associated Artery/Lesion type: [place] artery [place] vs. transplanted heart: [place] heart Associated angina: with stable angina Qualified Code(s): I25.118 - Atherosclerotic heart disease of [place] coronary artery with other forms of angina pectoris - Subjective Interval history: The patient has no complaints other than mild postoperative pain and irritation from his Laurent catheter. Vital Signs, Last 4 Hours Temp Pulse Resp BP Pulse Ox 08/04/16 08:29 89 10 120/47 97 08/04/16 07:54 97.8 F 08/04/16 06:59 99.2 F 92 14 128/43 97 08/04/16 05:59 99.2 F 85 14 129/48 100 Oxgyen Flow Rate Oxygen Flow Rate (LPM) 2 Clinical Data, last 8 Hours Output, Chest Tube Drainage 0 Amount [Mediastinal #1] Output, Chest Tube Drainage 0 Amount [Mediastinal #1] Output, Chest Tube Drainage 0 Amount [Mediastinal #1] Output, Chest Tube Drainage 0 Amount [Mediastinal #1] Output, Chest Tube Drainage 0 Amount [Mediastinal #1] Output, Chest Tube Drainage 0 Amount [Mediastinal #1] Output, Chest Tube Drainage 0 Amount [Mediastinal #1] Output, Chest Tube Drainage 0 Amount [Mediastinal #2] Output, Chest Tube Drainage 10 Amount [Mediastinal #2] Output, Chest Tube Drainage 20 Amount [Mediastinal #2] Output, Chest Tube Drainage 20 Amount [Mediastinal #2] Output, Chest Tube Drainage 20 Amount [Mediastinal #2] Output, Chest Tube Drainage 20 Amount [Mediastinal #2] Output, Chest Tube Drainage 0 Amount [Mediastinal #3] Output, Chest Tube Drainage 10 Amount [Mediastinal #3] Output, Chest Tube Drainage 10 Amount [Mediastinal #3] Output, Chest Tube Drainage 20 Amount [Mediastinal #3] Output, Chest Tube Drainage 10 Amount [Mediastinal #3] Output, Chest Tube Drainage 20 Amount [Mediastinal #3] Weight 08/02/16 08/03/16 08/04/16 23:59 23:59 23:59 Weight 79.379 kg 82.3 kg Lungs are clear to percussion and auscultation. Heart is in a normal sinus rhythm. All incisions are healing well without signs of infection and his sternum is stable. Chest tube drainage is minimal. Chest x-ray reveals atelectasis. - Labs 08/04/16 03:50 08/04/16 03:50 Lab Results, Last 24 hours 08/03/16 08/03/16 08/03/16 11:30 11:30 11:30 WBC 9.4 Hgb 9.6 L D Hct 29.3 L Plt Count 64 L D INR 1.8 D APTT 36.4 H Sodium 140 Potassium 3.7 Chloride 109 Carbon Dioxide 25 BUN 10 Creatinine 0.95 Glucose 91 Calcium 7.4 L Magnesium 2.6 08/03/16 08/04/16 08/04/16 15:00 03:50 03:50 WBC 13.1 H Hgb 8.9 L 7.4 L D Hct 27.3 L 23.3 L Plt Count 91 L 103 L INR 1.5 APTT 27.5 Sodium Potassium Chloride Carbon Dioxide BUN Creatinine Glucose Calcium Magnesium 08/04/16 03:50 WBC Hgb Hct Plt Count INR APTT Sodium 139 Potassium 4.3 Chloride 108 Carbon Dioxide 24 BUN 15 Creatinine 1.32 H Glucose 132 H Calcium 6.9 L Magnesium 1.8 - VTE Documentation of Mechanical Device: Graduated compression elastic hosiery Consult Discharge Plan - Plan Referrals: NO,PCP [Primary Care Provider] -
[2016-08-04] MEDS ORDERED: D5% in Water 1,000 ML IV PRN (11:40)
[2016-08-04] MEDS ORDERED: *HR* Dextrose 50 % in Water (Syg) 50 ML SYRINGE IVP PRN (11:40)
[2016-08-04] MEDS ORDERED: Dextrose Gel 15 GM PO PRN ×2 (11:40)
[2016-08-04] MEDS: *HR* Morphine 2 MG/ML SYRINGE IVP PRN (14:22)
[2016-08-04 15:57] LABS: Hematocrit 22.3 % (37.5-50.1); Hemoglobin 7.1 g/dL (12.9-16.9)
[2016-08-04] MEDS: Insulin LISPRO 300 UNITS/3 ML VIAL SQ SCH (17:12)
[2016-08-04] MEDS ORDERED: 0.9 % Sodium Chloride 250 ML ONE ×2 (17:17→20:56)
[2016-08-04] MEDS ORDERED: Insulin LISPRO 300 UNITS/3 ML VIAL SQ SCH (21:00)
[2016-08-05] MEDS ORDERED: Furosemide 20 MG/2 ML VIAL IVP ONE (01:50)
[2016-08-05] MEDS: Furosemide 20 MG/2 ML VIAL IVP ONE ×2 (01:52→01:54)
[2016-08-05 03:40] LABS: Basophils % 0.2 %; Eosinophils % 0.9 %
[2016-08-05 03:41] LABS: Eosinophils # 0.1 K/mcL (0.0-0.6); Hematocrit 27.8 % (37.5-50.1); Hemoglobin 9.2 g/dL (12.9-16.9); Immature Granulocytes % 0.3 % (0-4); Immature Platelets 6.1 % (1.1-6.1); Lymphocytes # 0.9 K/mcL (0.6-4.6); Lymphocytes % 6.6 %; Mean Corpuscular HGB Conc 33.1 g/dL (31.6-35.5); Mean Corpuscular Volume 81.5 fL (83.0-100.0); Mean Platelet Volume 10.1 fL (9.4-12.4); Monocytes % 6.4 %; Neutrophils # 11.3 K/mcL (1.6-8.9); Red Blood Count 3.41 M/mcL (4.19-5.50); Segmented Neutrophils % 85.6 %
[2016-08-05 03:43] LABS: Monocytes # 0.8 K/mcL (0.0-1.3); Platelet Count 80 K/mcL (140-400)
[2016-08-05 04:05] LABS: BUN/Creatinine Ratio 18 (6-26); Blood Urea Nitrogen 23 mg/dL (8-26); Carbon Dioxide 26 mEq/L (19-29); Chloride 104 mEq/L (98-109); Glucose 134 mg/dL (70-99); Osmolality,Calculated 288 (280-300); Potassium 3.6 mEq/L (3.5-4.5); Sodium 136 mEq/L (136-145); eGFR For African Americans > 60 (> 60); eGFR For Non-African Americans 56 (> 60)
[2016-08-05] MEDS: niCARdipine 40 MG/200 ML MLS IVC SCH ×2 (04:51→08:14)
[2016-08-05] MEDS: Aspirin Enteric Coated 81 MG Tablet PO SCH (08:12)
[2016-08-05] MEDS: 0.9 % Sodium Chloride 1,000 ML IVC SCH (08:12)
[2016-08-05] MEDS: Chlorhexidine Rinse 15 ML MOUTHWASH MM SCH ×2 (08:12→20:28)
[2016-08-05] MEDS: Insulin LISPRO 300 UNITS/3 ML VIAL SQ SCH ×4 (08:13→20:23)
[2016-08-05] MEDS: Fluticasone Propionate Nasal 50 MCG/SPRAY BOTTLE NS SCH ×2 (08:14→22:00)
[2016-08-05] MEDS: Nitroglycerin 25 MG/250 ML INFUS..BTL IVC SCH (08:14)
--- NOTE | 2016-08-05 08:50 | Cardiothoracic Progress Note ---
Date of Encounter: 08/05/16 Time of Encounter: 08:48 - Assessment and plan (1) Coronary artery disease Current Visit: Yes Status: Acute The patient is doing well. We will discontinue his chest tubes and pacing wires and check a stat portable chest x-ray. We will transfer him to the floor. We will discontinue his Laurent catheter and IV fluids. Qualifiers: Coronary Disease-Associated Artery/Lesion type: [place] artery [place] vs. transplanted heart: [place] heart Associated angina: with stable angina Qualified Code(s): I25.118 - Atherosclerotic heart disease of [place] coronary artery with other forms of angina pectoris - Subjective Interval history: The patient has no complaints other than mild postoperative pain. Vital Signs, Last 4 Hours Temp Pulse Resp BP Pulse Ox 08/05/16 08:10 84 12 102/61 94 L 08/05/16 07:58 98.3 F 08/05/16 06:00 86 18 96/61 95 08/05/16 05:00 84 20 99/46 95 Oxgyen Flow Rate Oxygen Flow Rate (LPM) 2 Clinical Data, last 8 Hours Output, Chest Tube Drainage 10 Amount [Mediastinal #1] Output, Chest Tube Drainage 10 Amount [Mediastinal #1] Output, Chest Tube Drainage 10 Amount [Mediastinal #2] Output, Chest Tube Drainage 10 Amount [Mediastinal #2] Output, Chest Tube Drainage 20 Amount [Mediastinal #2] Output, Chest Tube Drainage 40 Amount [Mediastinal #3] Output, Chest Tube Drainage 40 Amount [Mediastinal #3] Output, Chest Tube Drainage 60 Amount [Mediastinal #3] Output, Urine Amount 0 Weight 08/03/16 08/04/16 08/05/16 23:59 23:59 23:59 Weight 82.3 kg - Labs 08/05/16 03:37 08/05/16 03:37 Lab Results, Last 24 hours 08/04/16 08/05/16 08/05/16 15:50 03:37 03:37 WBC 13.2 H Hgb 7.1 L 9.2 L D Hct 22.3 L 27.8 L Plt Count 80 L Sodium 136 Potassium 3.6 Chloride 104 Carbon Dioxide 26 BUN 23 Creatinine 1.25 Glucose 134 H Calcium 7.0 L - VTE Documentation of Mechanical Device: Graduated compression elastic hosiery Consult Discharge Plan - Plan Referrals: NO,PCP [Primary Care Provider] -
[2016-08-05] MEDS ORDERED: Dextrose Gel 15 GM PO PRN ×2 (10:22)
[2016-08-05] MEDS ORDERED: *HR* Dextrose 50 % in Water (Syg) 50 ML SYRINGE IVP PRN (10:22)
[2016-08-05] MEDS ORDERED: *HR* Morphine 2 MG/ML SYRINGE IVP PRN (10:22)
[2016-08-05] MEDS ORDERED: D5% in Water 1,000 ML IV PRN (10:22)
[2016-08-05] MEDS ORDERED: Ondansetron 4 MG/2 ML VIAL IVP PRN (10:22)
[2016-08-05] MEDS ORDERED: Insulin Regular, Human 100 UNIT/ML IV PRN (10:22)
[2016-08-05] MEDS ORDERED: *HR* Promethazine 25 MG/ML VIAL IVP PRN (10:22)
[2016-08-05] MEDS ORDERED: Insulin Human Regular 5 UNIT in 0.9 % Sodium Chloride 10 ML IV ONE (10:30)
[2016-08-05] MEDS: *HR* Heparin 5,000 UNIT/ML VIAL SQ SCH (18:01)
[2016-08-05] MEDS: *HR* OxyCODONE/APAP 5/325 TABLET PO PRN (20:32)
[2016-08-06 01:02] LABS: Basophils % 0.2 %; Hematocrit 26.3 % (37.5-50.1); Hemoglobin 8.6 g/dL (12.9-16.9); Immature Granulocytes % 0.4 % (0-4); Mean Corpuscular HGB Conc 32.7 g/dL (31.6-35.5)
[2016-08-06 01:04] LABS: Eosinophils # 0.1 K/mcL (0.0-0.6); Immature Platelets 5.2 % (1.1-6.1); Lymphocytes % 9.6 %; Mean Corpuscular Hemoglobin 26.5 pg (28.0-33.3); Mean Corpuscular Volume 81.2 fL (83.0-100.0); Mean Platelet Volume 10.1 fL (9.4-12.4); Monocytes # 0.9 K/mcL (0.0-1.3); Monocytes % 8.5 %; Red Blood Count 3.24 M/mcL (4.19-5.50); Red Cell Distribution Width 15.3 % (11.5-14.5); Segmented Neutrophils % 80.3 %
[2016-08-06 01:11] LABS: Platelet Count 83 K/mcL (140-400)
[2016-08-06 01:14] LABS: BUN/Creatinine Ratio 23 (6-26); Blood Urea Nitrogen 22 mg/dL (8-26); Calcium 7.2 mg/dL (8.6-10.8); Carbon Dioxide 25 mEq/L (19-29); Chloride 104 mEq/L (98-109); Glucose 120 mg/dL (70-99); Osmolality,Calculated 285 (280-300); Potassium 3.5 mEq/L (3.5-4.5); Sodium 135 mEq/L (136-145); eGFR For African Americans > 60 (> 60); eGFR For Non-African Americans > 60 (> 60)
[2016-08-06] MEDS: *HR* Heparin 5,000 UNIT/ML VIAL SQ SCH ×2 (06:09→17:57)
[2016-08-06] MEDS: Insulin LISPRO 300 UNITS/3 ML VIAL SQ SCH ×4 (07:52→20:37)
[2016-08-06] MEDS: Aspirin Enteric Coated 81 MG Tablet PO SCH (08:01)
[2016-08-06] MEDS: Fluticasone Propionate Nasal 50 MCG/SPRAY BOTTLE NS SCH ×2 (08:02→21:00)
[2016-08-06] MEDS: Chlorhexidine Rinse 15 ML MOUTHWASH MM SCH ×2 (08:02→21:00)
[2016-08-06] MEDS ORDERED: clonazePAM 0.5 MG TABLET PO PRN (08:56)
--- NOTE | 2016-08-06 09:07 | Cardiothoracic Progress Note ---
Date of Encounter: 08/06/16 Time of Encounter: 09:05 - Assessment and plan (1) Coronary artery disease Current Visit: Yes Status: Acute We will restart the patient's home medications. I will order when necessary cough medicine. The patient should be ready to discharge to an extended care facility for rehabilitation in 1-2 days. Qualifiers: Coronary Disease-Associated Artery/Lesion type: [place] artery [place] vs. transplanted heart: [place] heart Associated angina: with stable angina Qualified Code(s): I25.118 - Atherosclerotic heart disease of [place] coronary artery with other forms of angina pectoris - Subjective Interval history: The patient complains of intermittent cough. No other problems. Vital Signs, Last 4 Hours Temp Pulse Resp BP Pulse Ox 08/06/16 08:00 82 08/06/16 07:26 99.0 F 84 18 119/69 99 Oxgyen Flow Rate Oxygen Flow Rate (LPM) 3 Clinical Data, last 8 Hours Output, Urine Amount 0 Output, Urine Amount 300 Output, Urine Amount 100 Output, Urine Amount 150 Weight 08/04/16 08/05/16 08/06/16 23:59 23:59 23:59 Weight 82.8 kg Lungs are clear to percussion and auscultation. Heart is in a normal sinus rhythm. All incisions are healing well without signs of infection and the sternum is stable. - Labs 08/06/16 00:52 08/06/16 00:52 Lab Results, Last 24 hours 08/06/16 08/06/16 00:52 00:52 WBC 10.0 Hgb 8.6 L Hct 26.3 L Plt Count 83 L Sodium 135 L Potassium 3.5 Chloride 104 Carbon Dioxide 25 BUN 22 Creatinine 0.96 Glucose 120 H Calcium 7.2 L - VTE Documentation of Mechanical Device: Graduated compression elastic hosiery Consult Discharge Plan - Plan Referrals: NO,PCP [Primary Care Provider] -
[2016-08-06] MEDS: clonazePAM 0.5 MG TABLET PO SCH ×2 (09:41→21:00)
[2016-08-06] MEDS: *HR* OxyCODONE/APAP 5/325 TABLET PO PRN (23:55)
[2016-08-07 00:37] LABS: Basophils % 0.4 %; Eosinophils # 0.2 K/mcL (0.0-0.6); Hematocrit 25.2 % (37.5-50.1); Hemoglobin 8.2 g/dL (12.9-16.9); Immature Granulocytes % 0.4 % (0-4); Lymphocytes # 1.2 K/mcL (0.6-4.6); Lymphocytes % 13.7 %; Mean Corpuscular HGB Conc 32.5 g/dL (31.6-35.5); Mean Corpuscular Hemoglobin 26.7 pg (28.0-33.3); Mean Corpuscular Volume 82.1 fL (83.0-100.0); Mean Platelet Volume 9.6 fL (9.4-12.4); Monocytes # 0.9 K/mcL (0.0-1.3); Monocytes % 10.2 %; Neutrophils # 6.3 K/mcL (1.6-8.9); Platelet Count 103 K/mcL (140-400); Red Blood Count 3.07 M/mcL (4.19-5.50); Red Cell Distribution Width 15.7 % (11.5-14.5); Segmented Neutrophils % 73.3 %
[2016-08-07 00:42] LABS: BUN/Creatinine Ratio 28 (6-26); Blood Urea Nitrogen 25 mg/dL (8-26); Calcium 7.9 mg/dL (8.6-10.8); Carbon Dioxide 25 mEq/L (19-29); Chloride 105 mEq/L (98-109); Glucose 119 mg/dL (70-99); Osmolality,Calculated 288 (280-300); Potassium 3.6 mEq/L (3.5-4.5); Sodium 136 mEq/L (136-145); eGFR For African Americans > 60 (> 60); eGFR For Non-African Americans > 60 (> 60)
[2016-08-07] MEDS: *HR* Heparin 5,000 UNIT/ML VIAL SQ SCH ×2 (05:30→17:32)
[2016-08-07] MEDS: *HR* OxyCODONE/APAP 5/325 TABLET PO PRN (05:30)
[2016-08-07] MEDS: Insulin LISPRO 300 UNITS/3 ML VIAL SQ SCH ×4 (08:06→21:15)
[2016-08-07] MEDS: clonazePAM 0.5 MG TABLET PO SCH ×2 (08:10→19:59)
[2016-08-07] MEDS: Aspirin Enteric Coated 81 MG Tablet PO SCH (08:10)
[2016-08-07] MEDS: Fluticasone Propionate Nasal 50 MCG/SPRAY BOTTLE NS SCH ×2 (08:11→20:11)
[2016-08-07] MEDS: Chlorhexidine Rinse 15 ML MOUTHWASH MM SCH ×2 (08:11→19:59)
--- NOTE | 2016-08-07 08:28 | Cardiothoracic Progress Note ---
Date of Encounter: 08/07/16 Time of Encounter: 08:25 - Assessment and plan (1) Coronary artery disease Current Visit: Yes Status: Acute The patient is recovering well from his CABG 2. He is ambulating in the hallways without complaints of substernal chest pain or shortness of breath. Social work is attempting to arrange transfer to the [facility] inpatient rehabilitation unit. The assessment and plan as outlined above was discussed with the patient and/or family members who expressed understanding and agreement. All questions were answered. Qualifiers: Coronary Disease-Associated Artery/Lesion type: [place] artery [place] vs. transplanted heart: [place] heart Associated angina: with stable angina Qualified Code(s): I25.118 - Atherosclerotic heart disease of [place] coronary artery with other forms of angina pectoris - Subjective Procedure(s) Performed: POD#4 S/P CABG2 Interval history: The patient remained hemodynamically stable overnight. He is ambulating in the hallways without difficulty. He has no complaints of substernal chest pain or shortness of breath. Vital Signs, Last 4 Hours Temp Pulse Resp BP Pulse Ox 08/07/16 08:13 85 08/07/16 07:32 78 20 117/59 92 L 08/07/16 04:39 97.4 F L 82 20 118/61 93 L Oxgyen Flow Rate Oxygen Flow Rate (LPM) 3 Clinical Data, last 8 Hours Output, Urine Amount 100 Output, Urine Amount 150 Weight 08/05/16 08/06/16 08/07/16 23:59 23:59 23:59 Weight 82.8 kg 83.5 kg - Physical Examination General: Conversant, No Apparent Distress Neck: No JVD, Normal carotid pulses Cardiac: Reg Rate and Rhythm, Normal S1 and S2, No Murmur Incision: No signs of infection, Dry/intact dressing Sternum: Stable Lungs: Normal Breath Sounds, No Wheeze, Rales, Rhonchi Neuro: Alert and responsive, No focal deficits noted Vascular: Normal capillary refill Musculoskeletal: No Chest Wall Tenderness Extremities: No Clubbing, No Cyanosis, No Edema - Labs 08/07/16 00:23 08/07/16 00:23 Lab Results, Last 24 hours 08/07/16 08/07/16 00:23 00:23 WBC 8.5 Hgb 8.2 L Hct 25.2 L Plt Count 103 L Sodium 136 Potassium 3.6 Chloride 105 Carbon Dioxide 25 BUN 25 Creatinine 0.88 Glucose 119 H Calcium 7.9 L - Imaging Chest Xray: image reviewed (No pneumothorax. Improved aeration with increasing lung volumes. Small bilateral pleural effusions.) - VTE Documentation of Mechanical Device: Graduated compression elastic hosiery Consult Discharge Plan - Plan Referrals: NO,PCP [Primary Care Provider] -
[2016-08-08] MEDS: *HR* Heparin 5,000 UNIT/ML VIAL SQ SCH (06:32)
[2016-08-08] MEDS: clonazePAM 0.5 MG TABLET PO SCH (08:03)
[2016-08-08] MEDS: Aspirin Enteric Coated 81 MG Tablet PO SCH (08:03)
[2016-08-08] MEDS: Chlorhexidine Rinse 15 ML MOUTHWASH MM SCH (08:04)
[2016-08-08] MEDS: Insulin LISPRO 300 UNITS/3 ML VIAL SQ SCH ×2 (08:04→12:26)
[2016-08-08] MEDS: Fluticasone Propionate Nasal 50 MCG/SPRAY BOTTLE NS SCH (08:05)
--- NOTE | 2016-08-08 08:47 | Discharge Summary ---
Date of Encounter: 08/08/16 Time of Encounter: 08:42 - Discharge Diagnosis (1) Coronary artery disease Priority: Primary Status: Acute Qualifiers: Coronary Disease-Associated Artery/Lesion type: [place] artery [place] vs. transplanted heart: [place] heart Associated angina: with stable angina Qualified Code(s): I25.118 - Atherosclerotic heart disease of [place] coronary artery with other forms of angina pectoris - Discharge Medications Prescriptions: OxyCODONE/APAP 5/325 [Percocet 5/325 MG] 1 each PO Q4HR PRN #50 tablet PRN Reason: Severe Pain Home Medications: Amitriptyline [Elavil] 100 mg PO BID 08/02/16 [History] Aspirin [Lo-Dose Aspirin EC] 81 mg PO DAILY 08/02/16 [History] Atenolol [Tenormin] 37.5 mg PO DAILY 08/02/16 [History] ClonazePAM [Klonopin] 0.5 mg PO BID 08/02/16 [History] Fluticasone Propionate Nasal [Flonase] 50 mcg NS BID 08/02/16 [History] Nitroglycerin [Nitrostat] 0.4 mg SL AD PRN 08/02/16 [History] [place]-3/Dha/Epa/Fish Oil [Fish Oil 1,000 mg Softgel] 1,000 mg PO DAILY 08/02/16 [History] Oxybutynin [Ditropan] 5 mg PO BID 08/02/16 [History] Primidone [Mysoline] 25 mg PO BID 08/02/16 [History] [place] Xtr/Zinc Picolin [[place] Capsule] 1 cap PO DAILY 08/02/16 [ History] Simvastatin [Zocor] 10 mg PO HS 08/02/16 [History] Terazosin [Hytrin] 3 mg PO HS 08/02/16 [History] ClonazePAM [Klonopin] 0.5 mg PO BID tablet 08/08/16 [Rx] OxyCODONE/APAP 5/325 [Percocet 5/325 MG] 1 each PO Q4HR PRN #50 tablet 08/08/16 [Rx] Allergies/Adverse Reactions: Allergies No Known Allergies Allergy (Verified 08/02/16 08:21) Date of admission: 08/02/16 13:29 Primary care physician: PCP NO Consults: 08/03/16 11:56 Consult to Cardiac Rehabilitation-Phase1 [CONS] Routine Comment: Reason for Consult: Post open heart Call Completed: Yes Consult to Erosion Control Coordinator [CONS] Routine Reason for SW Consult: open heart 08/05/16 10:22 Consult for Pharmacy Education [CONS] Routine Reason for Consult: Post-Op Heart Call Completed: Yes Consult to Occupational Therapy [CONS] Routine Comment: Evaluate, develop and implement POC Consult to Physical Therapy [CONS] Routine Comment: Evaluate, develop and implement POC Procedure(s) Performed: 1. Cardiac catheterization performed August 02, 2016. 2. CABG2 (ANAYA to LAD, SVG to PL branch) performed August 03, 2016. 3. Endoscopic vein harvesting, greater saphenous vein from right lower extremity performed August 03, 2016. Discharging clinician: Jess Hunt Anticipated date of discharge: 08/08/16 - Patient Status Disposition: Transfer Inpatient Rehab Fac Condition: Good Functional capacity at discharge: independent ambulation Overall status at discharge: patient is progressing back to baseline - Discharge Instructions Follow Up With: Evert Quigley MD [Partnered Physician] - 08/22/16 1:00 pm NO,PCP [Primary Care Provider] - [place],PCP [Non-Partnered Physician] - (PT IS GOING TO [facility] NO PCP APPOINTMENT NEEDED) Gerald Perez MD [Partnered Physician] - 08/31/16 1:00 pm - Diet and Activity Activity: sternal precautions, no driving for four weeks, no lifting greater than 10 pounds for eight weeks Diet: low fat, low cholesterol - Hospital Course Hospital course: Mr. Villanueva is a 75 year old man with hypercholesterolemia who began experiencing exertional, nonradiating substernal chest pain. The patient's primary care is provided by the [facility] and he was referred to [facility] [place] for further cardiac workup. The patient underwent an echocardiogram which revealed an LVEF of 60%. Subsequent cardiac catheterization revealed severe 3 vessel CAD. In particular the patient had a 95 % proximal LAD lesion, a 70-95% mid LAD lesion, a 50% mid LCx lesion, a 70% proximal RCA lesion, 95% mid RCA lesion, and a 60% distal RCA lesion. The patient was recommended for CABG. The patient underwent CABG2 on August 03, 2016. The patient was transferred to the ICU postoperatively. He remained hemodynamically stable. The patient was extubated and transferred to the stepdown unit on POD #1. Chest tube removed on POD #2. He patient was ambulating without complaints of substernal chest pain or shortness of breath. He patient was then discharged to an extended care facility as a bridge to home on POD #5. - Time Spent with Patient Total time spent providing and/or coordinating discharge services: Physical Examination Vital Signs, Last 4 Hours Temp Pulse Resp BP Pulse Ox 03/21/17 08:13 79 03/21/17 07:25 98.6 F 78 16 141/65 95 General: Conversant, No Apparent Distress HEENT: Atraumatic, Normocephaly Neck: No JVD, Normal carotid pulses Cardiac: Reg Rate and Rhythm, Normal S1 and S2, No Murmur Lungs: Normal Breath Sounds, No Wheeze, Rales, Rhonchi Neuro: Alert and responsive, No focal deficits noted Vascular: Normal capillary refill Abdomen: Soft, Non-tender Musculoskeletal: No Chest Wall Tenderness Extremities: No Clubbing, No Cyanosis, No Edema Open Heart Registry Aspirin Cont/Prescribed at DC: Yes Beta Comfort Cont/Prescribed at DC: Yes Statin Cont/Prescribed at DC: Yes MAEGAN/ARB Cont/Prescribed at DC: Not indicated (LVEF greater than 50%.) - VTE Documentation of Mechanical Device: Graduated compression elastic hosiery
--- NOTE | 2016-08-08 08:56 | Physician Discharge Referral ---
ExtendedCare Referral Info Transfer To: [facility] Provider in Charge: Gerald Perez Provider in Charge after Transfer: PCP Institutional Level of Care: Skilled - Diagnosis (1) Coronary artery disease Priority: Primary Status: Resolved Expected Duration of Placement: 1-2 weeks Prognosis: Good Aware of Diagnosis: Patient Aware of Prognosis: Patient - Transfer Medications Prescriptions: OxyCODONE/APAP 5/325 [Percocet 5/325 MG] 1 each PO Q4HR PRN #50 tablet PRN Reason: Severe Pain Home Medications: Amitriptyline [Elavil] 100 mg PO BID 08/02/16 [History] Aspirin [Lo-Dose Aspirin EC] 81 mg PO DAILY 08/02/16 [History] Atenolol [Tenormin] 37.5 mg PO DAILY 08/02/16 [History] ClonazePAM [Klonopin] 0.5 mg PO BID 08/02/16 [History] Fluticasone Propionate Nasal [Flonase] 50 mcg NS BID 08/02/16 [History] Nitroglycerin [Nitrostat] 0.4 mg SL AD PRN 08/02/16 [History] [place]-3/Dha/Epa/Fish Oil [Fish Oil 1,000 mg Softgel] 1,000 mg PO DAILY 08/02/16 [History] Oxybutynin [Ditropan] 5 mg PO BID 08/02/16 [History] Primidone [Mysoline] 25 mg PO BID 08/02/16 [History] Saw [place] Xtr/Zinc Picolin [Saw [place] Capsule] 1 cap PO DAILY 08/02/16 [ History] Simvastatin [Zocor] 10 mg PO HS 08/02/16 [History] Terazosin [Hytrin] 3 mg PO HS 08/02/16 [History] ClonazePAM [Klonopin] 0.5 mg PO BID tablet 08/08/16 [Rx] OxyCODONE/APAP 5/325 [Percocet 5/325 MG] 1 each PO Q4HR PRN #50 tablet 08/08/16 [Rx] Allergies/Adverse Reactions: Allergies No Known Allergies Allergy (Verified 08/02/16 08:21) - Respiratory Orders None Smoking Cessation: Smoking cessation has been advised. For more information, call the [place] Tobacco Quit Line at 7-002-YKJO-NOW. - Ancillary Orders May use pressure relief devices daily prn, May go on CATA w/family/respon green party w /meds at nurse discretion PRN, May have alcoholic beverages - Advance Directives Code Status: Full Code - Mobility Orders Ambulate - Rehabiliation Orders Rehab Potential: Good Rehab Orders: Sternal Precautions, ROM Exercises, Evaluation for Physical Therapy, Evaluation for Occupational Therapy - Treatments Skin tear care topically daily PRN per policy, May check for fecal impaction rectally daily PRN, Fleet enema rectally every other day PRN cleansing purposes - Diet Orders Regular CERTIFICATION: I certify that the transfer of the above named patient to an Extended Care Facility is necessary for the continuing treatment of the diagnosis listed. The above information is true and accurate reflection of patient's current condition. Confidential - Redisclosure prohibited without a patient's written consent.
[2016-08-08 11:17] VITALS: BP 135/78
== END 2016-08-08 12:50 | DRG 234 ==
LOC: 2NENU 07:45 → INVDIALAB 07:45 → ICNU 08-03 07:53 → 2NNU 08-05 16:30
PROVIDERS: ADMIT Thoracic Surgery (Cardiothoracic Vascular Surgery); ATTEND Thoracic Surgery (Cardiothoracic Vascular Surgery)

== ENCOUNTER 2016-08-10 13:35 | Observation (INO) ==
--- NOTE | 2016-08-10 13:57 | Emergency Department Note ---
Disposition Clinical Impression: Altered mental status Qualifiers: Altered mental status type: unspecified Qualified Code(s): R41.82 - Altered mental status, unspecified Disposition: Admitted As Inpatient Condition: Good [facility]errals: [facility]Primary Care Provider[facility] - Forms: ED Satisfaction Letter Altered Mental Status HPI - General Chief Complaint: ED Altered Mental Status Stated Complaint: lethargy Time Seen by Provider: 08/10/16 13:39 Source: EMS Mode of arrival: EMS Limitations: altered mental status Nursing Notes Reviewed: Yes Vital Signs Reviewed: Yes - History of Present Illness HPI Narrative: 75-year-old male history of CAD, CABG one week ago, hyperlipidemia who presents to the ER from nursing facility due to reports of lethargy. EMS reports that squad was called because the patient was not waking up like usual. States that he was not engaged for activities there this afternoon. They became concerned so they called EMS to bring him over. Upon arrival patient is maintaining his airway without difficulty. He is minimally arousable to verbal or physical stimuli. He is unable to give an account for his current situation. He does have pinpoint pupils on exam. Review of his medication list does show clonazepam as well as Percocet. MD complaint: altered mental status Onset (ago): [employer] Timing confirmed by: caregiver Pain Severity: none Context: other (recent CABG 1 week ago) Associated symptoms: Reports: other (unable to assess) Treatments prior to arrival: oxygen - Related Data Home Medications Medication Instructions Recorded Confirmed Amitriptyline [Elavil] 100 mg PO BID 08/02/16 08/07/16 Aspirin [Lo-Dose Aspirin EC] 81 mg PO DAILY 08/02/16 08/02/16 Atenolol [Tenormin] 37.5 mg PO DAILY 08/02/16 08/02/16 ClonazePAM [Klonopin] 0.5 mg PO BID 08/02/16 08/02/16 Fluticasone Propionate Nasal 50 mcg NS BID 08/02/16 08/02/16 [Flonase] Nitroglycerin [Nitrostat] 0.4 mg SL AD PRN 08/02/16 08/02/16 [place]-3/Dha/Epa/Fish Oil [Fish Oil 1,000 mg PO DAILY 08/02/16 08/02/16 1,000 mg Softgel] Oxybutynin [Ditropan] 5 mg PO BID 08/02/16 08/02/16 Primidone [Mysoline] 25 mg PO BID 08/02/16 08/02/16 [place] Xtr/Zinc Picolin [Saw 1 cap PO DAILY 08/02/16 08/02/16 [place] Capsule] Simvastatin [Zocor] 10 mg PO HS 08/02/16 08/02/16 Terazosin [Hytrin] 3 mg PO HS 08/02/16 08/02/16 Previous Rx's Medication Instructions Recorded ClonazePAM [Klonopin] 0.5 mg PO BID tablet 08/08/16 OxyCODONE/APAP 5/325 [Percocet 1 each PO Q4HR PRN #50 tablet 08/08/16 5/325 MG] Allergies Allergy/AdvReac Type Severity Reaction Status Date / Time No Known Allergies Allergy Verified 08/02/16 08:21 Limitations: ROS unobtainable due to patients medical condition Past Medical History - Past Medical History Attestation: Yes The following information was validated with the patient. Source: old records reviewed Medical history: Reports: hyperlipidemia Surgical history: Reports: coronary bypass (CABG) Psychiatric history: Reports: anxiety - Social History Smoking Status: Unknown if ever smoked Smokeless Tobacco Status: No Alcohol use: Reports: none Drug use: Reports: none Physical Exam - General Limitations: altered mental status General appearance: obtunded - Head Head exam: atraumatic, normocephalic, normal inspection - Eye Eye exam: Present: normal appearance, miosis - ENT ENT exam: normal exam - Neck Neck exam: Present: normal inspection - Chest Chest inspection: Present: normal inspection, symmetric chest wall rise, other ( Vertical midline incision from recent CABG. Ruby intact.) - Respiratory Respiratory exam: Present: normal lung sounds bilaterally - Cardiovascular Cardiovascular exam: Present: regular rate, normal rhythm, normal heart sounds - Abdominal Exam Abdominal exam: Present: soft, Non-Tender. Absent: tenderness - Extremities Exam Extremities exam: Present: normal inspection - Expanded Upper Extremity Exam Shoulder exam: Present: normal inspection Arm exam: Present: normal inspection Elbow exam: Present: normal inspection Forearm/Wrist exam: Present: normal inspection Hand exam: Present: normal inspection - Expanded Lower Extremity Exam Hip/Pelvis exam: Present: normal inspection Upper leg exam: Present: normal inspection Knee exam: Present: normal inspection Lower leg exam: Present: normal inspection Ankle exam: Present: normal inspection Foot/toe exam: Present: normal inspection - Neurological Exam Neurological exam: Present: other (unable to assess) - Skin Skin exam: Present: warm, dry, intact, normal color Course Course Narrative: Patient seen and examined. Vital signs reviewed. He is maintaining his own airway. Patient did open his eyes with verbal stimulus. Patient given 0.4 of Narcan without any change. Continue to monitor. We will obtain EKG, chest x- ray, labs including troponin. We will also get a CT scan of the head and urinalysis. - Reevaluation(s) Reevaluation #1: Patient given 2 mg of Narcan. He did have a slightly improved response to this and open his eyes to verbal stimulus. Able to answer some questions but still nods off easily. Vital Signs Temperature 98.0 F 08/10/16 13:35 Pulse Rate 77 08/10/16 13:35 Respiratory Rate 16 08/10/16 13:35 Blood Pressure 113/93 08/10/16 13:35 O2 Sat by Pulse Oximetry 96 08/10/16 13:35 Temperature 98.0 F 08/10/16 13:35 Pulse Rate 76 08/10/16 15:42 Respiratory Rate 18 08/10/16 15:42 Blood Pressure 128/74 08/10/16 15:42 O2 Sat by Pulse Oximetry 100 08/10/16 15:42 Oxygen Delivery Oxygen Delivery Nasal Cannula Altered Mental Status - [facility] Narrative Medical decision making narrative: 75-year-old male presents to the ER from nursing facility due to altered mental status. Patient recently had a CABG one week ago. Reports that he has been less arousable at the nursing facility. Here patient had pinpoint pupils and was initially responsive to painful stimuli. Patient given Narcan 2 with slight improvement of his mental status. His EKG shows no acute ischemic changes. Troponin is elevated at 0.15. Patient admitted to the hospitalist service for further management. - Lab Data Lab results reviewed: Yes I reviewed the patient's lab results. Result diagrams: 08/10/16 14:03 08/10/16 14:03 Lab Results 08/10/16 08/10/16 08/10/16 Range/Units 14:03 14:03 14:03 WBC 9.3 (4.3-11.1) K/mcL RBC 3.23 L (4.19-5.50) M/mcL Hgb 8.6 L (12.9-16.9) g/dL Hct 27.2 L (37.5-50.1) % MCV 84.2 (83.0-100.0) fL MCH 26.6 L (28.0-33.3) pg MCHC 31.6 (31.6-35.5) g/dL RDW 16.1 H (11.5-14.5) % Plt Count 198 D (140-400) K/mcL MPV 9.3 L (9.4-12.4) fL Immature Gran % 1.2 (0-4) % Seg Neutrophils % 72.9 % Lymphocytes % 11.3 % Monocytes % 9.5 % Eosinophils % 4.7 % Basophils % 0.4 % Neutrophils # 6.8 (1.6-8.9) K/mcL Lymphocytes # 1.1 (0.6-4.6) K/mcL Monocytes # 0.9 (0.0-1.3) K/mcL Eosinophils # 0.4 (0.0-0.6) K/mcL Basophils # 0.0 (0.0-0.2) K/mcL Nucleated RBCs/100 WBC 0.2 H (0) /100 WBC PT 13.6 H (9.4-12.1) Seconds INR 1.3 ABG pH (7.32-7.45) pH Units ABG pCO2 (35-45) mmHg ABG pO2 (85-104) mmHg ABG HCO3 (21-27) mEQ/L ABG Total CO2 (20-26) mEq/L ABG O2 Saturation (95-98) % ABG Base Excess (-2.0 to 3.0) mEq/L Blood Gas Modality Inspired O2 % Sodium 138 (136-145) mEq/L Potassium 4.1 (3.5-4.5) mEq/L Chloride 106 (98-109) mEq/L Carbon Dioxide 23 (19-29) mEq/L BUN 19 (8-26) mg/dL Creatinine 0.79 (0.72-1.25) mg/dL Est GFR ( Amer) > 60 (> 60) Est GFR (Non-Af Amer) > 60 (> 60) BUN/Creatinine Ratio 24 (6-26) Glucose 91 (70-99) mg/dL Calculated Osmolality 288 (280-300) Calcium 7.7 L (8.6-10.8) mg/dL Troponin I (0-0.03) ng/mL B-Natriuretic Peptide (0-100) pg/mL Urine Color (Yellow) Urine Clarity (Clear) Urine pH (5.0-8.0) pH Units Ur Specific [place] (1.010-1.025) Urine Protein (Neg-Trace) mg/dL Urine Glucose (UA) (Normal) mg/dL Urine Ketones (Negative) mg/dL Urine Blood (Negative) Urine Nitrite (Negative) Urine Bilirubin (Negative) Urine Urobilinogen (Normal) mg/dL Ur Leukocyte Esterase (Negative) Urine Microscopic RBC (0-3) per hpf Urine Microscopic WBC (0-3) per hpf Ur Squamous Epith Cells (None-Few) per lpf Urine Bacteria (None-Few) per hpf Hyaline Casts (None-Few) per lpf Ur Culture Indicated? (NO) Urine Opiates Screen (Hfrqre=275) ng/mL Ur Barbiturates Screen (Lbiujv=498) ng/mL Ur Phencyclidine Scrn (Cutoff=25) ng/mL Ur Amphetamines Screen (Keqyha=9351) ng/mL U Benzodiazepines Scrn (Lfoocz=414) ng/mL Urine Cocaine Screen (Cutoff= 300) ng/mL U Marijuana (THC) Screen (Cutoff = 50) ng/mL 08/10/16 08/10/16 08/10/16 Range/Units 14:03 14:03 14:30 WBC (4.3-11.1) K/mcL RBC (4.19-5.50) M/mcL Hgb (12.9-16.9) g/dL Hct (37.5-50.1) % MCV (83.0-100.0) fL MCH (28.0-33.3) pg MCHC (31.6-35.5) g/dL RDW (11.5-14.5) % Plt Count (140-400) K/mcL MPV (9.4-12.4) fL Immature Gran % (0-4) % Seg Neutrophils % % Lymphocytes % % Monocytes % % Eosinophils % % Basophils % % Neutrophils # (1.6-8.9) K/mcL Lymphocytes # (0.6-4.6) K/mcL Monocytes # (0.0-1.3) K/mcL Eosinophils # (0.0-0.6) K/mcL Basophils # (0.0-0.2) K/mcL Nucleated RBCs/100 WBC (0) /100 WBC PT (9.4-12.1) Seconds INR ABG pH 7.43 (7.32-7.45) pH Units ABG pCO2 41 (35-45) mmHg ABG pO2 106 H (85-104) mmHg ABG HCO3 27.2 H (21-27) mEQ/L ABG Total CO2 28.5 H (20-26) mEq/L ABG O2 Saturation 98 (95-98) % ABG Base Excess 2.6 (-2.0 to 3.0) mEq/L Blood Gas Modality nc Inspired O2 28 % Sodium (136-145) mEq/L Potassium (3.5-4.5) mEq/L Chloride (98-109) mEq/L Carbon Dioxide (19-29) mEq/L BUN (8-26) mg/dL Creatinine (0.72-1.25) mg/dL Est GFR ( Amer) (> 60) Est GFR (Non-Af Amer) (> 60) BUN/Creatinine Ratio (6-26) Glucose (70-99) mg/dL Calculated Osmolality (280-300) Calcium (8.6-10.8) mg/dL Troponin I 0.15 H* (0-0.03) ng/mL B-Natriuretic Peptide 391 H (0-100) pg/mL Urine Color (Yellow) Urine Clarity (Clear) Urine pH (5.0-8.0) pH Units Ur Specific [place] (1.010-1.025) Urine Protein (Neg-Trace) mg/dL Urine Glucose (UA) (Normal) mg/dL Urine Ketones (Negative) mg/dL Urine Blood (Negative) Urine Nitrite (Negative) Urine Bilirubin (Negative) Urine Urobilinogen (Normal) mg/dL Ur Leukocyte Esterase (Negative) Urine Microscopic RBC (0-3) per hpf Urine Microscopic WBC (0-3) per hpf Ur Squamous Epith Cells (None-Few) per lpf Urine Bacteria (None-Few) per hpf Hyaline Casts (None-Few) per lpf Ur Culture Indicated? (NO) Urine Opiates Screen (Pxwqdq=789) ng/mL Ur Barbiturates Screen (Oiynqh=515) ng/mL Ur Phencyclidine Scrn (Cutoff=25) ng/mL Ur Amphetamines Screen (Sbxmmp=4350) ng/mL U Benzodiazepines Scrn (Vnhbkp=644) ng/mL Urine Cocaine Screen (Cutoff= 300) ng/mL U Marijuana (THC) Screen (Cutoff = 50) ng/mL 08/10/16 08/10/16 Range/Units 14:46 14:46 WBC (4.3-11.1) K/mcL RBC (4.19-5.50) M/mcL Hgb (12.9-16.9) g/dL Hct (37.5-50.1) % MCV (83.0-100.0) fL MCH (28.0-33.3) pg MCHC (31.6-35.5) g/dL RDW (11.5-14.5) % Plt Count (140-400) K/mcL MPV (9.4-12.4) fL Immature Gran % (0-4) % Seg Neutrophils % % Lymphocytes % % Monocytes % % Eosinophils % % Basophils % % Neutrophils # (1.6-8.9) K/mcL Lymphocytes # (0.6-4.6) K/mcL Monocytes # (0.0-1.3) K/mcL Eosinophils # (0.0-0.6) K/mcL Basophils # (0.0-0.2) K/mcL Nucleated RBCs/100 WBC (0) /100 WBC PT (9.4-12.1) Seconds INR ABG pH (7.32-7.45) pH Units ABG pCO2 (35-45) mmHg ABG pO2 (85-104) mmHg ABG HCO3 (21-27) mEQ/L ABG Total CO2 (20-26) mEq/L ABG O2 Saturation (95-98) % ABG Base Excess (-2.0 to 3.0) mEq/L Blood Gas Modality [place]ired O2 % Sodium (136-145) mEq/L Potassium (3.5-4.5) mEq/L Chloride (98-109) mEq/L Carbon Dioxide (19-29) mEq/L BUN (8-26) mg/dL Creatinine (0.72-1.25) mg/dL Est GFR ( Amer) (> 60) Est GFR (Non-Af Amer) (> 60) BUN/Creatinine Ratio (6-26) Glucose (70-99) mg/dL Calculated Osmolality (280-300) Calcium (8.6-10.8) mg/dL Troponin I (0-0.03) ng/mL B-Natriuretic Peptide (0-100) pg/mL Urine Color Dark Yellow (Yellow) Urine Clarity Clear (Clear) Urine pH 6.0 (5.0-8.0) pH Units Ur Specific [place] 1.026 H (1.010-1.025) Urine Protein 30 H (Neg-Trace) mg/dL Urine Glucose (UA) Normal (Normal) mg/dL Urine Ketones 15 H (Negative) mg/dL Urine Blood Negative (Negative) Urine Nitrite Negative (Negative) Urine Bilirubin Small H (Negative) Urine Urobilinogen Normal (Normal) mg/dL Ur Leukocyte Esterase Negative (Negative) Urine Microscopic RBC 5-15 H (0-3) per hpf Urine Microscopic WBC 3-5 H (0-3) per hpf Ur Squamous Epith Cells Many H (None-Few) per lpf Urine Bacteria None Seen (None-Few) per hpf Hyaline Casts Few (None-Few) per lpf Ur Culture Indicated? NO (NO) Urine Opiates Screen Negative (Lfpobn=281) ng/mL Ur Barbiturates Screen Negative (Oympng=073) ng/mL Ur Phencyclidine Scrn Negative (Cutoff=25) ng/mL Ur Amphetamines Screen Negative (Phjpgg=0939) ng/mL U Benzodiazepines Scrn Negative (Fupfsl=557) ng/mL Urine Cocaine Screen Negative (Cutoff= 300) ng/mL U Marijuana (THC) Screen Negative (Cutoff = 50) ng/mL - Radiology Data Radiology results reviewed: Yes I reviewed the patient's radiology results. Chest X-Ray 08/10/16 13:40 IMPRESSION: 1. Stable cardiomegaly 2. Bibasilar volume loss is again noted D/ / En Raines MD / En Raines MD Interpreting Provider: En Raines MD Head CT 08/10/16 13:42 IMPRESSION: No acute intracranial abnormality. D/ / Marquita Beltran MD / Marquita Beltran MD Interpreting Provider: Marquita Beltran MD - EKG Data EKG attestation: Yes I reviewed and interpreted this EKG. EKG results narrative: EKG demonstrates normal sinus rhythm with a rate of 77 bpm. Normal axis. [place] interval 168 QRS duration 100 QTC 428 T wave flattening in the inferior and lateral leads. No ST elevations or depressions. No acute ischemic findings. No significant changes from previous EKG dated 08/03/16. TPA Checklist - LKW: 3-4.5 hrs Add. Contraindications Patient/family understanding: The patient/family members have been counseled and understood the risk, benefit , and alternatives of treatment. S.B.A.R. - S.B.A.R. Situation: Demographics, MOA Background: Presenting Complaint, Relevant PMH, Meds, & Allergies Assessment: Vital Signs, Course and respsone to treatment, Exam Concerns, Patient/Family Expectation, Pertinant Lab Results, Outstanding Labs Recommendation: Barrier(s) to disposition, Recommendation based on pending studies, treatments, or consults S.B.A.R. Report Given to: Juana TaylorBBenjamin Repor Time: 16:08 Attestation Statement - Attestation Attestation: I examined this patient and my medical decision-making was reviewed with the SPRINKLER INSTALLER/PA/Advanced Practice Nurse/Resident Physician. I agree with the documented findings, disposition and treatment plan as described except to the extent set forth below. Patient to the emergency department with altered mental status. Patient is a week status post open heart. He is more lethargic today. Not participating in his therapy sessions. On exam he is laying in bed. Sleeping but arousable. Mumbles. Midline sternotomy scar with Steri-Strips still in place. Plan. Minimal response to Laurent placement. CT unremarkable. He is not hypercapnic. Unclear why he is lethargic. Likely observation.
[2016-08-10 14:12] LABS: Basophils % 0.4 %; Eosinophils # 0.4 K/mcL (0.0-0.6); Eosinophils % 4.7 %; Hematocrit 27.2 % (37.5-50.1); Hemoglobin 8.6 g/dL (12.9-16.9); Immature Granulocytes % 1.2 % (0-4); Lymphocytes # 1.1 K/mcL (0.6-4.6); Lymphocytes % 11.3 %; Mean Corpuscular HGB Conc 31.6 g/dL (31.6-35.5); Mean Corpuscular Hemoglobin 26.6 pg (28.0-33.3); Mean Corpuscular Volume 84.2 fL (83.0-100.0); Mean Platelet Volume 9.3 fL (9.4-12.4); Monocytes # 0.9 K/mcL (0.0-1.3); Monocytes % 9.5 %; Neutrophils # 6.8 K/mcL (1.6-8.9); Nucleated Red Blood Cells 0.2 /100 WBC (0); Platelet Count 198 K/mcL (140-400); Red Blood Count 3.23 M/mcL (4.19-5.50); Red Cell Distribution Width 16.1 % (11.5-14.5); Segmented Neutrophils % 72.9 %
[2016-08-10 14:17] LABS: INR 1.3; Prothrombin Time 13.6 Seconds (9.4-12.1)
[2016-08-10 14:23] LABS: BUN/Creatinine Ratio 24 (6-26); Blood Urea Nitrogen 19 mg/dL (8-26); Calcium 7.7 mg/dL (8.6-10.8); Carbon Dioxide 23 mEq/L (19-29); Chloride 106 mEq/L (98-109); Glucose 91 mg/dL (70-99); Osmolality,Calculated 288 (280-300); Potassium 4.1 mEq/L (3.5-4.5); Sodium 138 mEq/L (136-145); eGFR For African Americans > 60 (> 60); eGFR For Non-African Americans > 60 (> 60)
[2016-08-10 14:44] LABS: ABG Base Excess 2.6 mEq/L (-2.0 to 3.0); ABG HCO3 27.2 mEQ/L (21-27); ABG Oxygen Saturation 98 % (95-98); ABG PCO2 41 mmHg (35-45); ABG PH 7.43 pH Units (7.32-7.45); ABG PO2 106 mmHg (85-104); ABG TCO2 28.5 mEq/L (20-26)
[2016-08-10 14:45] LABS: Blood Gas FiO2 28 %
[2016-08-10 14:53] LABS: Bilirubin,Urine Small (Negative); Blood,Urine Negative (Negative); Clarity,Urine Clear (Clear); Color,Urine Dark Yellow (Yellow); Glucose,Urine (UA) Normal (Normal); Ketones,Urine 15 mg/dL (Negative); Leukocyte Esterase,Urine Negative (Negative); Nitrite,Urine Negative (Negative); Protein,Urine 30 mg/dL (Neg-Trace); Specific Gravity,Urine 1.026 (1.010-1.025); Urobilinogen,Urine Normal (Normal)
[2016-08-10 14:54] LABS: Bacteria,Urine None Seen per hpf (None-Few); Hyaline Casts,Urine Few per lpf (None-Few); Squamous Epithelial Cell,Urine Many per lpf (None-Few)
[2016-08-10 14:59] LABS: Amphetamine Screen,Urine Negative ng/mL (Cutoff=1000); Barbiturate Screen,Urine Negative ng/mL (Cutoff=200); Benzodiazepines Screen,Urine Negative ng/mL (Cutoff=200); Cannabinoid Screen,Urine Negative ng/mL (Cutoff = 50); Cocaine Screen,Urine Negative ng/mL (Cutoff= 300); Opiate Screen,Urine Negative ng/mL (Cutoff=300); Phencyclidine Screen,Urine Negative ng/mL (Cutoff=25)
--- NOTE | 2016-08-10 19:58 | Internal Med History&Physical ---
Date of Encounter: 08/10/16 Time of Encounter: 19:54 Assessment and Plan (1) Altered mental status Current visit: Yes Status: Acute Likely induced by medications. No evidence of AMS now, he is alert, oriented in place, time and person. No signs of infection. No CO2 retention. ABG revelaed a PCO2 of 41 and no acidemia. Vital signs are stable. He responded to narcan and his medications include percocet and clonazepam. Will hold potentially sedating meds for now and monitor the patient closely. A kramer catheter was placed in the ED. will remove the kramer and watch for possible urinary retention. Elevation of troponin in abscense of chest pain, likely due to S/P recent CABG. Will check TSH. A1c 5.4. Possible D/C back to [facility] tomorrow if stable. D/W patient. Tele monitoring. Qualifiers: Altered mental status type: unspecified Qualified Code(s): R41.82 - Altered mental status, unspecified (2) Coronary artery disease Current visit: No Status: Resolved Resume home meds. DVT prophylaxis. Qualifiers: Coronary Disease-Associated Artery/Lesion type: [place] artery [place] vs. transplanted heart: [place] heart Associated angina: with stable angina Qualified Code(s): I25.118 - Atherosclerotic heart disease of [place] coronary artery with other forms of angina pectoris Internal Medicine - H&P: HPI Chief complaint: "Not waking up" Admitted From: Emergency Dept Plans for Post Hospital Care: Transfer Inp Rehab Fac History of present illness: Mr. Villanueva is a 75 year old male history of CAD, CABG one week ago, hyperlipidemia presented to ED from inpatient reab center. Was transferred via EMS due to altered mental status. Patient was not "waking up" and partiicpating in rehab exercises. Initial evlauaiton in the ED included head CT which was unremarkable, CXR without acute findings, labs with mild elevation of troponins. Patient denies chest pain. In the ED he did receive 2 doses of narcan and is currently oriented and not in distress. Of note, the patient received clonazepam and percocet at the [facility]. Patient was amditted for further management and workup. Past Med Surg Social Fam HX - Past Medical History Medical history: hyperlipidemia, hypertension Psychiatric history: anxiety - Past Surgical History Surgical History: coronary bypass (CABG) - Social History Smoking Status: Unknown if ever smoked Smokeless Tobacco Status: No Alcohol use: none Drug use: none - Family History Father Adopted: No Living Status: Internal Medicine - H&P: Meds Aspirin [Lo-Dose Aspirin EC] 81 mg PO DAILY 08/02/16 [History] Atenolol [Tenormin] 37.5 mg PO HS 08/02/16 [History] Fluticasone Propionate Nasal [Flonase] 50 mcg NS BID 08/02/16 [History] Nitroglycerin [Nitrostat] 0.4 mg SL Q5M PRN 08/02/16 [History] [place]-3/Dha/Epa/Fish Oil [Fish Oil 1,000 mg Softgel] 1,000 mg PO DAILY 08/02/16 [History] Primidone [Mysoline] 25 mg PO BID 08/02/16 [History] Simvastatin [Zocor] 10 mg PO HS 08/02/16 [History] Terazosin [Hytrin] 3 mg PO HS 08/02/16 [History] ClonazePAM [Klonopin] 0.5 mg PO BID tablet 08/08/16 [Rx] OxyCODONE/APAP 5/325 [Percocet 5/325 MG] 1 each PO Q4HR PRN #50 tablet 08/08/16 [Rx] Amitriptyline HCl 100 mg PO BID 08/10/16 [History] Benzonatate [Tessalon] 100 mg PO TID 08/10/16 [History] Calcium Carbonate [Tums] 500 mg PO Q6H PRN 08/10/16 [History] Menthol [[place]] 3.2 mg MM PRN PRN 08/10/16 [History] Na Phos,M-B/Na Phos,Di-Ba [Fleet Enema Extra] 230 ml RC Q48H PRN 08/10/16 [ History] Oxybutynin Chloride [Ditropan Xl] 5 mg PO DAILY 08/10/16 [History] Allergies No Known Allergies Allergy (Verified 08/02/16 08:21) All Systems PM: A 10-system review of systems was performed and is negative for pertinent findings except as documented above in the HPI. - Constitutional Constitutional: as per HPI, no chills, no fever(s), no night sweats - EENT Eyes: as per HPI, no change in vision, no discharge, no pain, no photophobia Ears: as per HPI, no ear discharge, no ear pain, no tinnitus Nose, mouth and throat: as per HPI, no dysphagia, no nasal discharge, no neck pain, no sore throat - Breasts Breasts: as per HPI - Cardiovascular Cardiovascular ROS IM: as per HPI, no chest pain, no diaphoresis, no dyspnea, no lightheadedness, no palpitations, no syncope - Respiratory Respiratory: as per HPI, no cough, no dyspnea, no wheezing, no excessive phlegm production - Gastrointestinal Gastrointestinal: as per HPI, no abdominal pain, no diarrhea, no hematemesis, no hematochezia, no melena, no nausea, no vomiting - Genitourinary Genitourinary ROS male: as per HPI - Musculoskeletal Musculoskeletal ROS IM: as per HPI, no numbness, no tingling - Integumentary Integumentary IM: as per HPI, no rash, no unusual bruising - Neurological Neurological ROS: as per HPI, no confusion, no convulsions, no focal weakness, no numbness, no tingling, no tremor(s) - Psychiatric Psychiatric: as per HPI - Endocrine Endocrine IM: as per HPI - Hematologic/Lymphatic Hematologic/Lymphatic: as per HPI, no easy bruising - Allergic/Immunologic Allergic/Immunologic: as per HPI - Constitutional Vitals: Temp Pulse Resp BP Pulse Ox 98.9 F 86 22 128/75 99 08/10/16 19:31 08/10/16 19:31 08/10/16 19:31 08/10/16 19:31 08/10/16 19:31 General appearance: Present: cooperative, A&O X 3, pleasant - Head Head exam: Present: atraumatic, normocephalic - Eye Eye exam: Present: PERRL, conjuntiva pink, sclera anicteric Pupils: Present: PERRL - Neck Neck exam general surgery: Present: supple, trachea midline. Absent: lymphadenopathy - Respiratory Respiratory exam: Present: CTAB. Absent: accessory muscle use, rales, rhonchi, wheezes - Cardiovascular Cardiovascular exam: Present: RRR, +S1, +S2. Absent: diastolic murmur, gallop, rubs, systolic murmur - GI/Abdominal GI/Abdominal exam: Present: normal bowel sounds, soft, no peritoneal signs. Absent: distended, tenderness - Extremities Exam Extremities exam: Present: warm, radial pulses palpable and symetrical. Absent : calf tenderness, cyanotic, pedal edema - Neurological Exam Neurological exam: Present: CN II-XII intact, oriented X3, no focal deficits. Absent: pronater drift, facial droop, speech deficit - Skin Skin exam: Present: dry, intact Internal Med - H&P Results - Labs CBC & Chem 7: 08/10/16 14:03 08/10/16 14:03
[2016-08-10] MEDS ORDERED: Acetaminophen 325 MG TABLET PO PRN (20:05)
[2016-08-10] MEDS ORDERED: Naloxone 0.4 MG/ML INJ IVP PRN (20:05)
[2016-08-10] MEDS: Fluticasone Propionate Nasal 50 MCG/SPRAY BOTTLE NS SCH (21:11)
--- NOTE | 2016-08-11 06:31 | Electrocardiograph Report ---
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
[2016-08-11 06:38] LABS: Hematocrit 27.2 % (37.5-50.1); Hemoglobin 8.4 g/dL (12.9-16.9); Mean Corpuscular HGB Conc 30.9 g/dL (31.6-35.5); Mean Corpuscular Hemoglobin 26.1 pg (28.0-33.3); Mean Corpuscular Volume 84.5 fL (83.0-100.0); Mean Platelet Volume 9.2 fL (9.4-12.4); Nucleated Red Blood Cells 0.2 /100 WBC (0); Platelet Count 216 K/mcL (140-400); Red Blood Count 3.22 M/mcL (4.19-5.50); Red Cell Distribution Width 15.9 % (11.5-14.5)
[2016-08-11 06:50] LABS: BUN/Creatinine Ratio 22 (6-26); Blood Urea Nitrogen 18 mg/dL (8-26); Calcium 7.8 mg/dL (8.6-10.8); Carbon Dioxide 24 mEq/L (19-29); Chloride 104 mEq/L (98-109); Glucose 101 mg/dL (70-99); Osmolality,Calculated 280 (280-300); Sodium 134 mEq/L (136-145); eGFR For African Americans > 60 (> 60); eGFR For Non-African Americans > 60 (> 60)
[2016-08-11 07:12] LABS: Thyroid Stimulating Hormone 3.029 mcIU/mL (0.350-4.840)
[2016-08-11 07:13] LABS: Eosinophils # 0.1 K/mcL (0.0-0.6); Lymphocytes # 0.6 K/mcL (0.6-4.6); Monocytes # 0.2 K/mcL (0.0-1.3); Neutrophils # 7.8 K/mcL (1.6-8.9); Platelet Estimate Normal (Normal)
[2016-08-11 07:54] VITALS: BP 119/71
[2016-08-11] MEDS: Fluticasone Propionate Nasal 50 MCG/SPRAY BOTTLE NS SCH (08:44)
[2016-08-11] MEDS ORDERED: Aspirin Enteric Coated 81 MG Tablet PO SCH (09:00)
--- NOTE | 2016-08-11 09:38 | Discharge Summary ---
Date of Encounter: 08/11/16 Time of Encounter: 09:35 - Discharge Diagnosis (1) Acute metabolic encephalopathy Priority: Primary Status: Resolved (2) Coronary artery disease Priority: Secondary Status: Resolved Qualifiers: Coronary Disease-Associated Artery/Lesion type: [place] artery [place] vs. transplanted heart: [place] heart Associated angina: without angina Qualified Code(s): I25.10 - Atherosclerotic heart disease of [place] coronary artery without angina pectoris (3) Hyperlipemia Priority: Secondary Status: Chronic Qualifiers: Hyperlipidemia type: mixed hyperlipidemia Qualified Code(s): E78.2 - Mixed hyperlipidemia (4) Anxiety Priority: Secondary Status: Chronic (5) S/P CABG (coronary artery bypass graft) Priority: Secondary Status: Chronic - Discharge Medications Prescriptions: ClonazePAM [Klonopin] 0.5 mg PO BID #5 tablet Home Medications: Aspirin [Lo-Dose Aspirin EC] 81 mg PO DAILY 08/02/16 [History] Atenolol [Tenormin] 37.5 mg PO HS 08/02/16 [History] Fluticasone Propionate Nasal [Flonase] 50 mcg NS BID 08/02/16 [History] Nitroglycerin [Nitrostat] 0.4 mg SL Q5M PRN 08/02/16 [History] [place]-3/Dha/Epa/Fish Oil [Fish Oil 1,000 mg Softgel] 1,000 mg PO DAILY 08/02/16 [History] Simvastatin [Zocor] 10 mg PO HS 08/02/16 [History] Terazosin [Hytrin] 3 mg PO HS 08/02/16 [History] OxyCODONE/APAP 5/325 [Percocet 5/325 MG] 1 each PO Q4HR PRN #50 tablet 08/08/16 [Rx] Amitriptyline HCl 100 mg PO BID 08/10/16 [History] Benzonatate [Tessalon] 100 mg PO TID 08/10/16 [History] Calcium Carbonate [Tums] 500 mg PO Q6H PRN 08/10/16 [History] Menthol [[place]] 3.2 mg MM PRN PRN 08/10/16 [History] Na Phos,M-B/Na Phos,Di-Ba [Fleet Enema Extra] 230 ml RC Q48H PRN 08/10/16 [ History] Oxybutynin Chloride [Ditropan Xl] 5 mg PO DAILY 08/10/16 [History] ClonazePAM [Klonopin] 0.5 mg PO BID #5 tablet 08/11/16 [Rx] Allergies/Adverse Reactions: Allergies No Known Allergies Allergy (Verified 08/02/16 08:21) Date of admission: 08/10/16 16:48 Primary care physician: WEI HUSAIN Consults: 08/11/16 08:38 Consult to Skidder Operator [CONS] Routine Reason for SW Consult: from [facility] Discharging clinician: Boris Espinal Anticipated date of discharge: 08/11/16 - Patient Status Disposition: Transfer SNF Condition: Good Functional capacity at discharge: independent ambulation Overall status at discharge: patient is progressing back to baseline - Discharge Instructions [facility] Provider[facility] - - Diet and Activity Activity: as per physical therapy Diet: low fat, low cholesterol Hospital course: Mr. Villanueva is a 75 year old male with hx CAD s/p recent CABG brought to ED due to unresponsiveness. He was in rehab following recent CABG. Pt states he has anxiety and takes Clonazepam. He says he has been receiving it but has not been taking pain medications. Upon arrival to ED he was somnolent and was given two doses of Narcan with improvement. He had slight elevation in his troponin but had recent CABG. He was placed in observation. Mr. Villanueva was placed in observation. He had no new issues overnight and in the morning of 08/10 he was afebrile with stable vitals. He denied new issues and was OK to return to rehab. At that time he was discharged back to [place] to continue his skilled rehab. - Time Spent with Patient Total time spent providing and/or coordinating discharge services: 35min - Constitutional Vitals: Temp Pulse Resp BP Pulse Ox 99.3 F 77 18 119/71 97 08/11/16 07:51 08/11/16 07:51 08/11/16 07:51 08/11/16 07:51 08/11/16 07:51 General appearance: Present: cooperative, A&O X 3, pleasant - Head Head exam: Present: normocephalic - Eye Eye exam: Present: conjuntiva pink - ENT ENT exam: Present: mucous membranes moist - Respiratory Respiratory exam: Present: decreased breath sounds, CTAB - Cardiovascular Cardiovascular exam: Present: RRR, systolic murmur. Absent: tachycardia - GI/Abdominal GI/Abdominal exam: Present: soft. Absent: tenderness - Extremities Exam Extremities exam: Present: warm. Absent: tenderness - Neurological Exam Neurological exam: Present: alert, oriented X3, no focal deficits - Psychiatric Psychiatric exam: Present: normal affect, normal mood - Skin Skin exam: Present: dry, warm. Absent: rash Additional comments: Steristrips intact with no drainage or erythema
--- NOTE | 2016-08-11 10:32 | Physician Discharge Referral ---
ExtendedCare Referral Info Transfer To: [facility] [facility] [employer] Provider in Charge after Transfer: PCP Institutional Level of Care: Skilled - Diagnosis (1) Acute metabolic encephalopathy Priority: Primary Status: Resolved (2) Coronary artery disease Priority: Secondary Status: Resolved (3) Hyperlipemia Priority: Secondary Status: Chronic (4) Anxiety Priority: Secondary Status: Chronic (5) S/P CABG (coronary artery bypass graft) Priority: Secondary Status: Chronic Expected Duration of Placement: Less than 30 days Prognosis: Fair Aware of Diagnosis: Patient Aware of Prognosis: Patient - Transfer Medications Prescriptions: ClonazePAM [Klonopin] 0.5 mg PO BID #5 tablet Home Medications: Aspirin [Lo-Dose Aspirin EC] 81 mg PO DAILY 08/02/16 [History] Atenolol [Tenormin] 37.5 mg PO HS 08/02/16 [History] Fluticasone Propionate Nasal [Flonase] 50 mcg NS BID 08/02/16 [History] Nitroglycerin [Nitrostat] 0.4 mg SL Q5M PRN 08/02/16 [History] [place]-3/Dha/Epa/Fish Oil [Fish Oil 1,000 mg Softgel] 1,000 mg PO DAILY 08/02/16 [History] Simvastatin [Zocor] 10 mg PO HS 08/02/16 [History] Terazosin [Hytrin] 3 mg PO HS 08/02/16 [History] Amitriptyline HCl 100 mg PO BID 08/10/16 [History] Benzonatate [Tessalon] 100 mg PO TID 08/10/16 [History] Calcium Carbonate [Tums] 500 mg PO Q6H PRN 08/10/16 [History] Menthol [[place]] 3.2 mg MM PRN PRN 08/10/16 [History] Na Phos,M-B/Na Phos,Di-Ba [Fleet Enema Extra] 230 ml RC Q48H PRN 08/10/16 [ History] Oxybutynin Chloride [Ditropan Xl] 5 mg PO DAILY 08/10/16 [History] ClonazePAM [Klonopin] 0.5 mg PO BID #5 tablet 08/11/16 [Rx] Allergies/Adverse Reactions: Allergies No Known Allergies Allergy (Verified 08/02/16 08:21) - Respiratory Orders Oxygen / L per min (Keep saturation greater than 90%) Smoking Cessation: Smoking cessation has been advised. For more information, call the [place] Tobacco Quit Line at 7-643-OXTL-NOW. - Ancillary Orders May use pressure relief devices daily prn, May consult with Dentist, Tire Molder, Integrated Pest Management Technician PRN - Advance Directives Code Status: Full Code - History and Physical History/Physical reviewed & approved w/add comments: Pt more alert now. - Mobility Orders Ambulate - Rehabiliation Orders Rehab Potential: Fair Rehab Orders: Sternal Precautions, Evaluation for Physical Therapy, Evaluation for Occupational Therapy - Treatments Skin tear care topically daily PRN per policy, May check for fecal impaction rectally daily PRN, Fleet enema rectally every other day PRN cleansing purposes - Diet Orders Cardiac CERTIFICATION: I certify that the transfer of the above named patient to an Extended Care Facility is necessary for the continuing treatment of the diagnosis listed. The above information is true and accurate reflection of patient's current condition. Confidential - Redisclosure prohibited without a patient's written consent.
== END 2016-08-11 11:10 ==
LOC: 2ANU 13:35 → EMEROO 13:35 → 2ANU 17:30
PROVIDERS: ADMIT Nurse Practitioner Family; ATTEND Internal Medicine

== ENCOUNTER 2021-07-06 14:09 | Inpatient (IN) ==
[2021-07-06 15:04] LABS: Hematocrit 54.4 % (37.5-50.1); Hemoglobin 17.5 g/dL (12.9-16.9); Mean Corpuscular HGB Conc 32.2 g/dL (31.6-35.5); Mean Corpuscular Hemoglobin 25.1 pg (28.0-33.3); Mean Corpuscular Volume 78.2 fL (83.0-100.0); Mean Platelet Volume 11.2 fL (9.4-12.4); Platelet Count 208 K/mcL (140-400); Red Blood Count 6.96 M/mcL (4.19-5.50); Red Cell Distribution Width 17.2 % (11.5-14.5); White Blood Count 18.9 K/mcL (4.3-11.1)
[2021-07-06] MEDS ORDERED: cefTRIAXone 1,000 MG in 0.9 % Sodium Chloride Mini Bag 100 ML IVPB STA (15:10)
[2021-07-06 15:27] LABS: Influenza A PCR Negative (Negative); Influenza B PCR Negative (Negative); Resp. Syncytial Virus PCR Negative (Negative)
[2021-07-06 15:35] LABS: Amphetamine Screen,Urine Negative ng/mL (Cutoff=1000); Barbiturate Screen,Urine Negative ng/mL (Cutoff=200); Benzodiazepines Screen,Urine Negative ng/mL (Cutoff=200); Cannabinoid Screen,Urine Negative ng/mL (Cutoff = 50); Cocaine Screen,Urine Negative ng/mL (Cutoff= 300); Opiate Screen,Urine Negative ng/mL (Cutoff=300); Phencyclidine Screen,Urine Negative ng/mL (Cutoff=25)
[2021-07-06 15:40] LABS: SARS-CoV-2 by PCR (In House) Negative (Negative)
[2021-07-06 15:45] LABS: Bacteria,Urine Moderate per hpf (None-Few); Bilirubin,Urine Negative (Negative); Blood,Urine Moderate (Negative); Clarity,Urine Ex.Turbid (Clear); Color,Urine Yellow (Yellow); Glucose,Urine (UA) Normal (Normal); Ketones,Urine Negative (Negative); Leukocyte Esterase,Urine Large (Negative); Mucus,Urine Few per lpf (None-Few); Nitrite,Urine Negative (Negative); PH,Urine 8.5 pH Units (5.0-8.0); Protein,Urine >=300 mg/dL (Neg-Trace); RBC,Urine 50-100 per hpf (0-3); Specific Gravity,Urine 1.013 (1.010-1.025); Urobilinogen,Urine Normal (Normal); WBC,Urine TNTC per hpf (0-3)
[2021-07-06 15:49] LABS: Eosinophils # 0.8 K/mcL (0.0-0.6); Lymphocytes # 5.3 K/mcL (0.6-4.6); Monocytes # 3.4 K/mcL (0.0-1.3); Neutrophils # 9.1 K/mcL (1.6-8.9)
[2021-07-06 15:50] LABS: Platelet Estimate Normal (Normal)
[2021-07-06] MEDS ORDERED: 0.9 % Sodium Chloride 1,000 ML IV ONE (15:58)
[2021-07-06 16:01] LABS: Alanine Aminotransferase 53 Units/L (7-52); Albumin 3.6 g/dL (3.5-5.7); Albumin/Globulin Ratio 0.8 (1.1-2.2); Alkaline Phosphatase 124 Units/L (34-104); Aspartate Amino Transferase 47 Units/L (13-39); Bilirubin,Direct 0.8 mg/dL (0.0-0.2); Bilirubin,Indirect 1.1 mg/dL (0.0-1.0); Bilirubin,Total 1.9 mg/dL (0.3-1.0); Blood Urea Nitrogen > 130 mg/dL (8-23); Calcium 9.2 mg/dL (8.6-10.3); Carbon Dioxide 16 mEq/L (23-29); Chloride 99 mEq/L (98-107); Creatine Kinase 200 Units/L (30-223); Ethanol < 10 mg/dL (Less than 10); Globulin 4.5 g/dL (2.4-3.5); Glucose 144 mg/dL (70-105); Potassium 5.4 mEq/L (3.5-5.1); Sodium 138 mEq/L (136-145); Total Protein 8.1 g/dL (6.4-8.9); Troponin I 0.04 ng/mL (< 0.04); eGFR For African Americans 11 (> 60); eGFR For Non-African Americans 9 (> 60)
[2021-07-06] MEDS ORDERED: 0.9 % Sodium Chloride 1,000 ML IVC ONE (17:14)
[2021-07-06] MEDS ORDERED: Ondansetron 4 MG/2 ML VIAL IVP PRN (17:32)
[2021-07-06 18:43] LABS: Blood Urea Nitrogen > 130 mg/dL (8-23); Calcium 8.1 mg/dL (8.6-10.3); Carbon Dioxide 20 mEq/L (23-29); Chloride 104 mEq/L (98-107); Glucose 131 mg/dL (70-105); Potassium 4.2 mEq/L (3.5-5.1); Sodium 140 mEq/L (136-145); eGFR For African Americans 12 (> 60); eGFR For Non-African Americans 10 (> 60)
[2021-07-06] MEDS: Thiamine (B-1) 100 MG in 0.9 % Sodium Chloride 50 ML IVPB SCH (19:32)
[2021-07-06] MEDS: *HR* Heparin 5,000 UNIT/ML VIAL SQ SCH (22:36)
[2021-07-06] MEDS: Sodium Bicarbonate 150 MEQ in Water for inj. (sterile) 1,000 ML IVC SCH (22:37)
[2021-07-07 03:45] LABS: Hematocrit 43.8 % (37.5-50.1); Mean Corpuscular HGB Conc 33.1 g/dL (31.6-35.5); Mean Corpuscular Hemoglobin 25.7 pg (28.0-33.3); Mean Corpuscular Volume 77.7 fL (83.0-100.0); Platelet Count 211 K/mcL (140-400); Red Blood Count 5.64 M/mcL (4.19-5.50); White Blood Count 19.2 K/mcL (4.3-11.1)
[2021-07-07 03:48] LABS: Hemoglobin 14.5 g/dL (12.9-16.9)
[2021-07-07 04:00] LABS: Alanine Aminotransferase 43 Units/L (7-52); Albumin 2.8 g/dL (3.5-5.7); Albumin/Globulin Ratio 0.8 (1.1-2.2); Alkaline Phosphatase 98 Units/L (34-104); Aspartate Amino Transferase 45 Units/L (13-39); Bilirubin,Direct 0.5 mg/dL (0.0-0.2); Bilirubin,Indirect 0.8 mg/dL (0.0-1.0); Bilirubin,Total 1.3 mg/dL (0.3-1.0); Blood Urea Nitrogen > 130 mg/dL (8-23); Calcium 7.7 mg/dL (8.6-10.3); Carbon Dioxide 20 mEq/L (23-29); Chloride 109 mEq/L (98-107); Globulin 3.4 g/dL (2.4-3.5); Glucose 111 mg/dL (70-105); Magnesium 3.5 mg/dL (1.6-2.6); Phosphorous 5.7 mg/dL (2.7-4.5); Potassium 4.4 mEq/L (3.5-5.1); Sodium 146 mEq/L (136-145); Total Protein 6.2 g/dL (6.4-8.9); eGFR For African Americans 13 (> 60); eGFR For Non-African Americans 11 (> 60)
[2021-07-07 04:46] LABS: INR 1.4; Prothrombin Time 15.9 Seconds (9.4-12.1)
[2021-07-07] MEDS: *HR* Heparin 5,000 UNIT/ML VIAL SQ SCH ×2 (06:09→19:06)
[2021-07-07] MEDS: Sodium Bicarbonate 150 MEQ in Water for inj. (sterile) 1,000 ML IVC SCH (07:35)
[2021-07-07] MEDS: Finasteride 5 MG TABLET PO SCH (09:18)
[2021-07-07] MEDS: cefTRIAXone 1,000 MG in 0.9 % Sodium Chloride Mini Bag 100 ML IVP SCH (09:20)
[2021-07-07 09:31] LABS: Enterobacter cloacae Cmplx PCR Not Detected (Not Detect); Escherichia coli by PCR Not Detected (Not Detect); Klebs. pneumoniae group by PCR Not Detected (Not Detect); Klebsiella aerogenes by PCR Not Detected (Not Detect); Klebsiella oxytoca by PCR Not Detected (Not Detect); Salmonella species by PCR Not Detected (Not Detect); Serratia marcescens by PCR Not Detected (Not Detect)
[2021-07-07 09:32] LABS: A.calcoaceticus-baumannii cplx Not Detected (Not Detect); Bacteroides fragilis by PCR Not Detected (Not Detect); CTX-M ESBL Gene Not Detected (Not Detect); Candida albicans by PCR Not Detected (Not Detect); Candida auris by PCR Not Detected (Not Detect); Candida glabrata by PCR Not Detected (Not Detect); Candida krusei by PCR Not Detected (Not Detect); Candida parapsilosis by PCR Not Detected (Not Detect); Candida tropicalis by PCR Not Detected (Not Detect); Crypto. neoformans/gattii PCR Not Detected (Not Detect); Enterococcus faecalis by PCR Not Detected (Not Detect); Enterococcus faecium by PCR Not Detected (Not Detect); IMP Carbapenem-Resist Gene Not Detected (Not Detect); NDM Carbapenem-Resist Gene Not Detected (Not Detect); Proteus by PCR DETECTED (Not Detect); Pseudomonas aeruginosa by PCR Not Detected (Not Detect); Staph epidermidis by PCR Not Detected (Not Detect); Staph lugdunensis by PCR Not Detected (Not Detect); Staphylococcus aureus by PCR Not Detected (Not Detect); Staphylococcus by PCR Not Detected (Not Detect); Stenotrophomonas maltophilia Not Detected (Not Detect); Streptococcus agalactiae(B)PCR Not Detected (Not Detect); Streptococcus by PCR Not Detected (Not Detect); Streptococcus pneumoniae PCR Not Detected (Not Detect); Streptococcus pyogenes (A) PCR Not Detected (Not Detect); VIM Carbapenem-Resist Gene Not Detected (Not Detect); blaKPC Carbapenem-Resist Gene Not Detected (Not Detect); mcr-1 Colistin-Resist Gene Not Detected (Not Detect)
[2021-07-07 09:33] LABS: OXA-48-like Carbap-Resist Gene Not Detected (Not Detect)
[2021-07-07] MEDS: Sodium Bicarbonate 75 MEQ in D5% in Water 1,000 ML IVC SCH ×2 (10:20→21:11)
[2021-07-07] MEDS: Thiamine (B-1) 100 MG in 0.9 % Sodium Chloride 50 ML IVPB SCH (15:33)
[2021-07-07 16:47] LABS: Blood Urea Nitrogen > 130 mg/dL (8-23); Calcium 7.7 mg/dL (8.6-10.3); Carbon Dioxide 23 mEq/L (23-29); Chloride 105 mEq/L (98-107); Glucose 172 mg/dL (70-105); Sodium 142 mEq/L (136-145); eGFR For African Americans 15 (> 60); eGFR For Non-African Americans 12 (> 60)
[2021-07-07 22:29] LABS: Blood Urea Nitrogen > 130 mg/dL (8-23); Calcium 7.5 mg/dL (8.6-10.3); Carbon Dioxide 24 mEq/L (23-29); Chloride 104 mEq/L (98-107); Glucose 159 mg/dL (70-105); Potassium 4.3 mEq/L (3.5-5.1); Sodium 141 mEq/L (136-145); eGFR For African Americans 16 (> 60); eGFR For Non-African Americans 13 (> 60)
[2021-07-08] MEDS: *HR* Heparin 5,000 UNIT/ML VIAL SQ SCH ×2 (06:40→19:05)
[2021-07-08 06:43] LABS: Alanine Aminotransferase 64 Units/L (7-52); Albumin 2.5 g/dL (3.5-5.7); Albumin/Globulin Ratio 0.7 (1.1-2.2); Alkaline Phosphatase 149 Units/L (34-104); Aspartate Amino Transferase 84 Units/L (13-39); Bilirubin,Direct 0.3 mg/dL (0.0-0.2); Bilirubin,Indirect 0.7 mg/dL (0.0-1.0); Blood Urea Nitrogen > 130 mg/dL (8-23); Calcium 7.7 mg/dL (8.6-10.3); Carbon Dioxide 27 mEq/L (23-29); Chloride 99 mEq/L (98-107); Globulin 3.4 g/dL (2.4-3.5); Glucose 100 mg/dL (70-105); Potassium 3.9 mEq/L (3.5-5.1); Sodium 141 mEq/L (136-145); Total Protein 5.9 g/dL (6.4-8.9); eGFR For African Americans 16 (> 60); eGFR For Non-African Americans 13 (> 60)
[2021-07-08] MEDS: cefTRIAXone 1,000 MG in 0.9 % Sodium Chloride Mini Bag 100 ML IVP SCH (10:28)
[2021-07-08] MEDS: Finasteride 5 MG TABLET PO SCH (11:01)
[2021-07-08] MEDS: Ringers Solution, Lactated 1,000 ML IVC SCH ×2 (11:02→19:05)
[2021-07-08] MEDS: Thiamine (B-1) 100 MG in 0.9 % Sodium Chloride 50 ML IVPB SCH (11:03)
[2021-07-08 11:30] LABS: Blood Urea Nitrogen > 130 mg/dL (8-23); Calcium 7.4 mg/dL (8.6-10.3); Carbon Dioxide 28 mEq/L (23-29); Chloride 99 mEq/L (98-107); Glucose 155 mg/dL (70-105); Potassium 3.8 mEq/L (3.5-5.1); Sodium 138 mEq/L (136-145); eGFR For African Americans 15 (> 60); eGFR For Non-African Americans 13 (> 60)
[2021-07-08] MEDS: Aspirin Enteric Coated 81 MG Tablet PO SCH (13:53)
[2021-07-08 18:24] LABS: Potassium 3.9 mEq/L (3.5-5.1)
[2021-07-08] MEDS: Melatonin 3 MG TABLET PO PRN (21:09)
[2021-07-08] MEDS: Acetaminophen 325 MG TABLET PO PRN (21:09)
[2021-07-09] MEDS: Ringers Solution, Lactated 1,000 ML IVC SCH ×3 (04:07→20:26)
[2021-07-09] MEDS: *HR* Heparin 5,000 UNIT/ML VIAL SQ SCH ×2 (06:27→18:52)
[2021-07-09 08:18] LABS: Calcium 7.5 mg/dL (8.6-10.3)
[2021-07-09] MEDS: cefTRIAXone 1,000 MG in 0.9 % Sodium Chloride Mini Bag 100 ML IVP SCH (08:53)
[2021-07-09] MEDS: Aspirin Enteric Coated 81 MG Tablet PO SCH (08:53)
[2021-07-09] MEDS: Finasteride 5 MG TABLET PO SCH (08:53)
[2021-07-09] MEDS: Thiamine (B-1) 100 MG in 0.9 % Sodium Chloride 50 ML IVPB SCH (11:53)
[2021-07-10] MEDS: *HR* Heparin 5,000 UNIT/ML VIAL SQ SCH ×2 (04:13→16:43)
[2021-07-10] MEDS: Ringers Solution, Lactated 1,000 ML IVC SCH ×3 (04:17→21:11)
[2021-07-10] MEDS: Aspirin Enteric Coated 81 MG Tablet PO SCH (08:23)
[2021-07-10] MEDS: Finasteride 5 MG TABLET PO SCH (08:23)
[2021-07-10] MEDS: cefTRIAXone 1,000 MG in 0.9 % Sodium Chloride Mini Bag 100 ML IVP SCH (08:23)
[2021-07-10 10:59] LABS: Calcium 7.4 mg/dL (8.6-10.3); Potassium 4.4 mEq/L (3.5-5.1)
[2021-07-11 04:17] LABS: Hematocrit 34.3 % (37.5-50.1); Mean Corpuscular HGB Conc 32.7 g/dL (31.6-35.5); Mean Corpuscular Hemoglobin 25.7 pg (28.0-33.3); Mean Corpuscular Volume 78.7 fL (83.0-100.0); Platelet Count 175 K/mcL (140-400); Red Blood Count 4.36 M/mcL (4.19-5.50); White Blood Count 17.8 K/mcL (4.3-11.1)
[2021-07-11 04:19] LABS: Hemoglobin 11.2 g/dL (12.9-16.9)
[2021-07-11 04:36] LABS: Calcium 7.5 mg/dL (8.6-10.3); Potassium 4.7 mEq/L (3.5-5.1)
[2021-07-11] MEDS: *HR* Heparin 5,000 UNIT/ML VIAL SQ SCH ×2 (05:32→17:53)
[2021-07-11 08:20] LABS: Albumin 2.2 g/dL (3.5-5.7); Albumin/Globulin Ratio 0.6 (1.1-2.2); Bilirubin,Direct 0.2 mg/dL (0.0-0.2); Bilirubin,Indirect 0.4 mg/dL (0.0-1.0); Bilirubin,Total 0.6 mg/dL (0.3-1.0); Globulin 3.4 g/dL (2.4-3.5); Magnesium 2.4 mg/dL (1.6-2.6); Phosphorous 4.8 mg/dL (2.7-4.5); Total Protein 5.6 g/dL (6.4-8.9)
[2021-07-11] MEDS: Aspirin Enteric Coated 81 MG Tablet PO SCH (08:33)
[2021-07-11] MEDS: Finasteride 5 MG TABLET PO SCH (08:33)
[2021-07-11] MEDS: cefTRIAXone 1,000 MG in 0.9 % Sodium Chloride Mini Bag 100 ML IVP SCH (08:33)
[2021-07-11 11:04] LABS: Uric Acid 8.9 mg/dL (2.3-7.6)
[2021-07-11 13:01] LABS: Complement C3 118 mg/dL (87-200)
[2021-07-11 13:02] LABS: Rheumatoid Factor < 10 IU/mL (Less than 14)
[2021-07-11 13:16] LABS: Vitamin D 25 Hydroxy 36 ng/mL (30-80)
[2021-07-11] MEDS: 0.9 % Sodium Chloride 1,000 ML IVC SCH ×2 (13:58→22:05)
[2021-07-12] MEDS: *HR* Heparin 5,000 UNIT/ML VIAL SQ SCH ×2 (05:14→18:03)
[2021-07-12] MEDS: 0.9 % Sodium Chloride 1,000 ML IVC SCH ×2 (05:19→18:03)
[2021-07-12 08:22] LABS: Calcium 7.5 mg/dL (8.6-10.3); Potassium 4.8 mEq/L (3.5-5.1)
[2021-07-12] MEDS: cefTRIAXone 1,000 MG in 0.9 % Sodium Chloride Mini Bag 100 ML IVP SCH (09:11)
[2021-07-12] MEDS: Aspirin Enteric Coated 81 MG Tablet PO SCH (09:11)
[2021-07-12] MEDS: Finasteride 5 MG TABLET PO SCH (09:11)
[2021-07-12] MEDS ORDERED: Ringers Solution, Lactated 1,000 ML IVC SCH (11:00)
[2021-07-12] MEDS: Acetaminophen 325 MG TABLET PO PRN (20:43)
[2021-07-12] MEDS: Melatonin 3 MG TABLET PO PRN (20:44)
[2021-07-13] MEDS: 0.9 % Sodium Chloride 1,000 ML IVC SCH ×4 (02:15→17:42)
[2021-07-13] MEDS: *HR* Heparin 5,000 UNIT/ML VIAL SQ SCH ×2 (04:51→17:42)
[2021-07-13 05:12] LABS: Basophils % 0.2 %; Eosinophils # 0.2 K/mcL (0.0-0.6); Eosinophils % 1.4 %; Hematocrit 31.6 % (37.5-50.1); Hemoglobin 10.2 g/dL (12.9-16.9); Immature Granulocytes % 1.4 % (0-4); Lymphocytes # 0.9 K/mcL (0.6-4.6); Lymphocytes % 5.3 %; Mean Corpuscular HGB Conc 32.3 g/dL (31.6-35.5); Mean Corpuscular Hemoglobin 25.9 pg (28.0-33.3); Mean Corpuscular Volume 80.2 fL (83.0-100.0); Mean Platelet Volume 10.3 fL (9.4-12.4); Monocytes # 0.8 K/mcL (0.0-1.3); Monocytes % 4.7 %; Platelet Count 215 K/mcL (140-400); Red Blood Count 3.94 M/mcL (4.19-5.50); Red Cell Distribution Width 15.1 % (11.5-14.5)
[2021-07-13 05:33] LABS: Calcium 7.1 mg/dL (8.6-10.3); Potassium 4.5 mEq/L (3.5-5.1)
[2021-07-13] MEDS: cefTRIAXone 1,000 MG in 0.9 % Sodium Chloride Mini Bag 100 ML IVP SCH (09:35)
[2021-07-13] MEDS: Finasteride 5 MG TABLET PO SCH (09:36)
[2021-07-13] MEDS: Aspirin Enteric Coated 81 MG Tablet PO SCH (09:36)
[2021-07-13 10:28] LABS: Protein/Creatinine Ratio,Urine 2.58 mg/mg (0.00-0.20); Sodium, Urine 71.2 mEq/L
[2021-07-13] MEDS: Melatonin 3 MG TABLET PO PRN (22:00)
[2021-07-13] MEDS: Acetaminophen 325 MG TABLET PO PRN (22:00)
[2021-07-14] MEDS: 0.9 % Sodium Chloride 1,000 ML IVC SCH (01:47)
[2021-07-14] MEDS: *HR* Heparin 5,000 UNIT/ML VIAL SQ SCH ×2 (05:18→17:55)
[2021-07-14 06:16] LABS: Basophils # 0.1 K/mcL (0.0-0.2); Basophils % 0.4 %; Eosinophils # 0.2 K/mcL (0.0-0.6); Eosinophils % 1.5 %; Hematocrit 31.5 % (37.5-50.1); Immature Granulocytes % 1.1 % (0-4); Lymphocytes # 0.9 K/mcL (0.6-4.6); Lymphocytes % 6.5 %; Mean Corpuscular HGB Conc 31.7 g/dL (31.6-35.5); Mean Corpuscular Hemoglobin 25.8 pg (28.0-33.3); Mean Corpuscular Volume 81.4 fL (83.0-100.0); Mean Platelet Volume 10.8 fL (9.4-12.4); Monocytes # 0.7 K/mcL (0.0-1.3); Monocytes % 4.9 %; Neutrophils # 12.2 K/mcL (1.6-8.9); Platelet Count 257 K/mcL (140-400); Red Blood Count 3.87 M/mcL (4.19-5.50); Red Cell Distribution Width 15.6 % (11.5-14.5); Segmented Neutrophils % 85.6 %; White Blood Count 14.2 K/mcL (4.3-11.1)
[2021-07-14 07:10] LABS: Calcium 7.4 mg/dL (8.6-10.3); Potassium 4.4 mEq/L (3.5-5.1)
[2021-07-14] MEDS: Finasteride 5 MG TABLET PO SCH (08:42)
[2021-07-14] MEDS: cefTRIAXone 1,000 MG in 0.9 % Sodium Chloride Mini Bag 100 ML IVP SCH (08:42)
[2021-07-14] MEDS: Aspirin Enteric Coated 81 MG Tablet PO SCH (08:42)
[2021-07-14] MEDS: Calcium Gluconate 1gm/50mL 1 GM/50 ML BAG IVPB SCH ×2 (13:49→14:50)
[2021-07-14 17:49] LABS: ANCA IFA Titer <1:20 (<1:20)
[2021-07-15 02:43] LABS: Alpha 2 Globulin (PEP) 0.93 g/dL (0.48-1.05)
[2021-07-15 04:44] LABS: Basophils % 0.3 %; Eosinophils # 0.2 K/mcL (0.0-0.6); Eosinophils % 1.7 %; Hematocrit 31.1 % (37.5-50.1); Immature Granulocytes % 0.7 % (0-4); Lymphocytes % 7.3 %; Mean Corpuscular HGB Conc 32.2 g/dL (31.6-35.5); Mean Corpuscular Hemoglobin 26.3 pg (28.0-33.3); Mean Corpuscular Volume 81.8 fL (83.0-100.0); Mean Platelet Volume 10.4 fL (9.4-12.4); Monocytes # 0.6 K/mcL (0.0-1.3); Monocytes % 4.6 %; Neutrophils # 11.8 K/mcL (1.6-8.9); Platelet Count 215 K/mcL (140-400); Red Cell Distribution Width 15.6 % (11.5-14.5); Segmented Neutrophils % 85.4 %; White Blood Count 13.8 K/mcL (4.3-11.1)
[2021-07-15 04:58] LABS: Calcium 7.6 mg/dL (8.6-10.3); Magnesium 1.8 mg/dL (1.6-2.6); Phosphorous 4.5 mg/dL (2.7-4.5); Potassium 4.3 mEq/L (3.5-5.1)
[2021-07-15] MEDS: *HR* Heparin 5,000 UNIT/ML VIAL SQ SCH ×2 (05:05→19:08)
[2021-07-15] MEDS: Finasteride 5 MG TABLET PO SCH (07:53)
[2021-07-15] MEDS: Aspirin Enteric Coated 81 MG Tablet PO SCH (07:53)
[2021-07-15] MEDS: cefTRIAXone 1,000 MG in 0.9 % Sodium Chloride Mini Bag 100 ML IVP SCH (07:54)
[2021-07-15 10:30] LABS: ANCA IFA Pattern NONE DETECTED (None Detected); Serine Protease-3 Antibody 8 AU/mL (0-19)
[2021-07-15 10:44] LABS: IFE Reflexed NOT DONE
[2021-07-16] MEDS: *HR* Heparin 5,000 UNIT/ML VIAL SQ SCH ×2 (04:53→17:49)
[2021-07-16 05:01] LABS: Basophils % 0.3 %; Eosinophils # 0.2 K/mcL (0.0-0.6); Eosinophils % 1.5 %; Hematocrit 30.9 % (37.5-50.1); Hemoglobin 9.7 g/dL (12.9-16.9); Immature Granulocytes % 0.6 % (0-4); Lymphocytes # 1.1 K/mcL (0.6-4.6); Lymphocytes % 7.9 %; Mean Corpuscular HGB Conc 31.4 g/dL (31.6-35.5); Mean Corpuscular Hemoglobin 25.5 pg (28.0-33.3); Mean Corpuscular Volume 81.1 fL (83.0-100.0); Monocytes # 0.7 K/mcL (0.0-1.3); Monocytes % 5.1 %; Neutrophils # 11.5 K/mcL (1.6-8.9); Platelet Count 314 K/mcL (140-400); Red Blood Count 3.81 M/mcL (4.19-5.50); Red Cell Distribution Width 15.4 % (11.5-14.5); Segmented Neutrophils % 84.6 %; White Blood Count 13.6 K/mcL (4.3-11.1)
[2021-07-16 05:21] LABS: Calcium 7.6 mg/dL (8.6-10.3); Potassium 3.9 mEq/L (3.5-5.1)
[2021-07-16] MEDS: Aspirin Enteric Coated 81 MG Tablet PO SCH (07:41)
[2021-07-16] MEDS: Finasteride 5 MG TABLET PO SCH (07:41)
[2021-07-16] MEDS: cefTRIAXone 1,000 MG in 0.9 % Sodium Chloride Mini Bag 100 ML IVP SCH (07:42)
[2021-07-16] MEDS: Melatonin 3 MG TABLET PO PRN (20:20)
[2021-07-17 03:04] LABS: Basophils # 0.1 K/mcL (0.0-0.2); Basophils % 0.4 %; Eosinophils % 0.1 %; Hematocrit 30.6 % (37.5-50.1); Hemoglobin 9.8 g/dL (12.9-16.9); Immature Granulocytes % 0.5 % (0-4); Lymphocytes # 1.1 K/mcL (0.6-4.6); Lymphocytes % 7.5 %; Mean Corpuscular Hemoglobin 26.1 pg (28.0-33.3); Mean Corpuscular Volume 81.4 fL (83.0-100.0); Monocytes # 0.7 K/mcL (0.0-1.3); Neutrophils # 12.2 K/mcL (1.6-8.9); Platelet Count 326 K/mcL (140-400); Red Blood Count 3.76 M/mcL (4.19-5.50); Red Cell Distribution Width 15.4 % (11.5-14.5); Segmented Neutrophils % 86.5 %; White Blood Count 14.1 K/mcL (4.3-11.1)
[2021-07-17 03:23] LABS: Calcium 7.7 mg/dL (8.6-10.3); Potassium 3.8 mEq/L (3.5-5.1)
[2021-07-17] MEDS: *HR* Heparin 5,000 UNIT/ML VIAL SQ SCH ×2 (05:25→17:13)
[2021-07-17] MEDS: Aspirin Enteric Coated 81 MG Tablet PO SCH (07:25)
[2021-07-17] MEDS: cefTRIAXone 1,000 MG in 0.9 % Sodium Chloride Mini Bag 100 ML IVP SCH (07:26)
[2021-07-17] MEDS: Finasteride 5 MG TABLET PO SCH (07:26)
[2021-07-18] MEDS: *HR* Heparin 5,000 UNIT/ML VIAL SQ SCH ×2 (06:02→18:17)
[2021-07-18 06:03] LABS: Basophils # 0.1 K/mcL (0.0-0.2); Basophils % 0.4 %; Eosinophils # 0.2 K/mcL (0.0-0.6); Eosinophils % 1.2 %; Hematocrit 33.8 % (37.5-50.1); Hemoglobin 10.4 g/dL (12.9-16.9); Immature Granulocytes % 0.4 % (0-4); Lymphocytes # 1.1 K/mcL (0.6-4.6); Lymphocytes % 8.2 %; Mean Corpuscular HGB Conc 30.8 g/dL (31.6-35.5); Mean Corpuscular Hemoglobin 25.1 pg (28.0-33.3); Mean Corpuscular Volume 81.6 fL (83.0-100.0); Mean Platelet Volume 10.1 fL (9.4-12.4); Monocytes # 0.8 K/mcL (0.0-1.3); Monocytes % 5.6 %; Neutrophils # 11.2 K/mcL (1.6-8.9); Platelet Count 387 K/mcL (140-400); Red Blood Count 4.14 M/mcL (4.19-5.50); Red Cell Distribution Width 15.3 % (11.5-14.5); Segmented Neutrophils % 84.2 %; White Blood Count 13.4 K/mcL (4.3-11.1)
[2021-07-18 06:14] LABS: Calcium 8.2 mg/dL (8.6-10.3); Potassium 3.9 mEq/L (3.5-5.1)
[2021-07-18] MEDS: Aspirin Enteric Coated 81 MG Tablet PO SCH (09:58)
[2021-07-18] MEDS: Finasteride 5 MG TABLET PO SCH (09:58)
[2021-07-18] MEDS: cefTRIAXone 1,000 MG in 0.9 % Sodium Chloride Mini Bag 100 ML IVP SCH (09:58)
[2021-07-19 02:00] LABS: Basophils # 0.1 K/mcL (0.0-0.2); Basophils % 0.4 %; Hematocrit 29.9 % (37.5-50.1); Hemoglobin 9.6 g/dL (12.9-16.9); Immature Granulocytes % 0.4 % (0-4); Lymphocytes # 1.2 K/mcL (0.6-4.6); Lymphocytes % 8.4 %; Mean Corpuscular HGB Conc 32.1 g/dL (31.6-35.5); Monocytes # 0.9 K/mcL (0.0-1.3); Monocytes % 6.2 %; Neutrophils # 11.7 K/mcL (1.6-8.9); Platelet Count 363 K/mcL (140-400); Red Blood Count 3.69 M/mcL (4.19-5.50); Red Cell Distribution Width 15.5 % (11.5-14.5); Segmented Neutrophils % 84.6 %; White Blood Count 13.8 K/mcL (4.3-11.1)
[2021-07-19 02:20] LABS: Potassium 3.8 mEq/L (3.5-5.1)
[2021-07-19] MEDS: *HR* Heparin 5,000 UNIT/ML VIAL SQ SCH ×2 (05:10→17:33)
[2021-07-19] MEDS: Aspirin Enteric Coated 81 MG Tablet PO SCH (09:41)
[2021-07-19] MEDS: Finasteride 5 MG TABLET PO SCH (09:42)
[2021-07-19] MEDS: cefTRIAXone 1,000 MG in 0.9 % Sodium Chloride Mini Bag 100 ML IVP SCH (09:46)
[2021-07-20] MEDS: *HR* Heparin 5,000 UNIT/ML VIAL SQ SCH (05:21)
[2021-07-20 05:44] LABS: Basophils # 0.1 K/mcL (0.0-0.2); Basophils % 0.5 %; Eosinophils % 0.4 %; Hematocrit 30.5 % (37.5-50.1); Hemoglobin 9.8 g/dL (12.9-16.9); Immature Granulocytes % 0.4 % (0-4); Lymphocytes % 9.1 %; Mean Corpuscular HGB Conc 32.1 g/dL (31.6-35.5); Mean Corpuscular Hemoglobin 26.3 pg (28.0-33.3); Mean Platelet Volume 10.3 fL (9.4-12.4); Monocytes # 0.7 K/mcL (0.0-1.3); Monocytes % 6.7 %; Neutrophils # 8.6 K/mcL (1.6-8.9); Platelet Count 336 K/mcL (140-400); Red Blood Count 3.72 M/mcL (4.19-5.50); Red Cell Distribution Width 15.4 % (11.5-14.5); Segmented Neutrophils % 82.9 %; White Blood Count 10.4 K/mcL (4.3-11.1)
[2021-07-20 06:15] LABS: Calcium 8.1 mg/dL (8.6-10.3); Potassium 3.9 mEq/L (3.5-5.1)
[2021-07-20] MEDS: Aspirin Enteric Coated 81 MG Tablet PO SCH (08:35)
[2021-07-20] MEDS: Finasteride 5 MG TABLET PO SCH (08:36)
[2021-07-20] MEDS: cefTRIAXone 1,000 MG in 0.9 % Sodium Chloride Mini Bag 100 ML IVP SCH (09:14)
[2021-07-20 11:17] LABS: Influenza A PCR Negative (Negative); Influenza B PCR Negative (Negative); Resp. Syncytial Virus PCR Negative (Negative)
[2021-07-20 11:20] LABS: SARS-CoV-2 by PCR (In House) Negative (Negative)
[2021-07-20 11:56] VITALS: BP 110/68; PULSE 84; TEMP 98.2; O2SAT 96
== END 2021-07-20 14:56 ==
LOC: EMEROOARM 14:09 → 3NENU 14:09 → SUATTDRO 19:41 → 3NENU 21:14 → 3ANU 07-17 14:39
PROVIDERS: ADMIT Internal Medicine; ATTEND Family Medicine